=== PATIENT | female | born 1960 | race Two or more races ===

== ENCOUNTER 2018-04-30 17:34 | Inpatient (IN) | payer OTHER ==
[~2018-04-30] VITALS: Ht 166.4 cm; Wt 96.2 kg
--- NOTE | 2018-04-30 17:34 | NUR ---
Admitted a 57 years old female patient from [facility] via gurney with 2 EMT staff from [facility]. Pt. is under the care of Dr. Salgado and Dr. Grigsby who came with the following dx: s/p arthrotomy of lt. knee with a medial unicompartmental arthroplasty, partial lateral meniscectomy, GERD, partial thyroidectomy, carpal tunnel, and decrease mobility with hypercoagulable state. Patient has allergies to PCN. Patient is full code. Patient is A/OX4 verbally responsive and able to make her needs known. No SOB or acute distress. Denies pain during assessment. All pt. needs attended and met promptly. Lungs sounds clear to auscultation. MRSA swab completed per unit protocol. Offered pt. PNA and flu vaccine but refused due to fear of side effect. Noted with lt. knee surgical incision with babs covered in taylor wrap. No other skin condition noted. Pt. is continent to both B&B. Per pt. last BM was 04/27/18. Pt. on a regular diet, tolerated dinner well. Pt. oriented to unit. Dr. Salgado and Dr. Grigsby made aware of pt. admission. Kept pt. clean and dry. Safety measures in place. Call light and all frequently used items within pt. reach. Emphasize use of call light system, pt. verbalized clear understanding. Will endorse to oncoming shift accordingly.
[2018-04-30] MEDS ORDERED: ASPI-869 PO (17:47)
[2018-04-30] MEDS ORDERED: DOCU100C36 PO (17:48)
[2018-04-30] MEDS ORDERED: OXYC15TA2 PO (17:50)
[2018-04-30] MEDS ORDERED: BIOF1TAB PO (17:52)
[2018-04-30] MEDS ORDERED: CHOL10002 PO (17:52)
[2018-04-30] MEDS ORDERED: FAMO-132 PO (17:55)
[2018-04-30] MEDS ORDERED: MAG355OR18 PO (17:55)
[2018-04-30 18:00] VITALS: BP 127/65
--- NOTE | 2018-04-30 19:00 | NUR ---
Seen patient ambulating in the hallways with walker with slow and steady gait. Left knee with Liu wrap, dry and intact. Presented a tolerable pain during ambulation but refused any pain medications offered at this time. Patient very talkative and informative about her physical and medical condition. Anticipated needs.
[2018-04-30 20:00] VITALS: BP 110/50
--- NOTE | 2018-04-30 23:05 | NUR ---
Patient refused to have incision sites pictured at this time. Will try again some other times when she has no pain.
[2018-04-30] MEDS: OXYCODONE HCL 5 MG TABLET PO PRN (23:16)
--- NOTE | 2018-04-30 23:19 | NUR ---
Patient ambulated to the bathroom then complaining of severe excruciating left knee pain. Medicated with Oxy IR 15 mg as ordered and needed. Will monitor.
[2018-05-01] MEDS: OXYCODONE HCL 5 MG TABLET PO PRN ×4 (05:31→19:51)
--- NOTE | 2018-05-01 05:31 | NUR ---
Patient all of a sudden screaming and sobbing for pain after ambulating to the bathroom. Instructed patient to ask for pain medication before pain reached its peak so it would be easier to relieve the pain. Patient verbalized understanding. Medicated for pain as needed and ordered. Will continue to monitor.
--- NOTE | 2018-05-01 06:34 | NUR ---
Applied cold pack on affected area. Will monitor.
--- NOTE | 2018-05-01 06:37 | NUR ---
Once again tried to convinced patient to have a picture on her incisions but she then again refused. She claimed this can be done later during the day. Will endorse to oncoming shift.
[2018-05-01 07:09] VITALS: BP 126/65
--- NOTE | 2018-05-01 07:20 | NUR ---
Shift End Report: VS stable. Medicated twice for complaint of pain on left knee with moderate effect. Patient tends to scream and cry when she's in pain. Been instructed to call the nurse when she has pain instead of screaming and crying. Call light within easy reach. Very needy and demanding. All needs attended and met. Ice pack still in used on left knee to relieve pain to affected area. No fall/injury. No significant event reported all night. Continue care as planned
[2018-05-01 08:29] VITALS: BP 122/62
[2018-05-01] MEDS: DOCUSATE SODIUM 100 MG CAPSULE PO SCH ×2 (08:40→17:52)
[2018-05-01] MEDS: ASPIRIN EC 325 MG TABLET.DR PO SCH ×2 (08:41→17:52)
[2018-05-01] MEDS: CHOLECALCIFEROL 1,000 UNIT TABLET PO SCH (08:41)
[2018-05-01] MEDS ORDERED: [UNRECOGNIZED DRUG - OTHER] PO SCH (09:00)
[2018-05-01] MEDS: MIRALAX 17 GM POWD.PACK PO PRN (09:54)
[2018-05-01] MEDS: FAMOTIDINE 20 MG TABLET PO PRN (11:47)
--- NOTE | 2018-05-01 16:11 | NUR ---
INTERDISCIPLINARY TEAM CONFERENCE
[2018-05-01 16:25] VITALS: BP 104/68
[2018-05-01 20:12] VITALS: BP 126/57
--- NOTE | 2018-05-01 21:10 | NUR ---
Received pt in bed resting. AAO x4. No acute distress noted. Pt started to scream and cry due to complaint of 7/10 pain on the left knee. Pt noted to be shaking her legs vigorously making the pain worst. Pt instructed to avoid that for the meantime as it intensifies the pain even more. PRN Oxyir given as ordered. After 15 mins, pt asked if she could get a shot for pain instead. Pt encouraged to wait for the pain med to work. Reassessed after another 15 mins, pt stated that pain is subsiding already. Safety measures maintained. Call light and personal belongings within reach. Will continue to monitor.
[2018-05-01] MEDS ORDERED: MORPHINE SULFATE SR 30 MG TABLET.SA PO SCH (22:00)
[2018-05-01] MEDS ORDERED: MORPHINE SULFATE SR 15 MG TABLET.SA PO ONE ×2 (22:31→22:45)
[2018-05-01] MEDS ORDERED: MORPHINE SULFATE SR 15 MG TABLET.SA PO SCH (22:36)
[2018-05-02] MEDS: OXYCODONE HCL 5 MG TABLET PO PRN ×5 (03:41→23:08)
[2018-05-02 08:01] VITALS: BP 144/66
[2018-05-02] MEDS: MORPHINE SULFATE SR 15 MG TABLET.SA PO SCH ×2 (08:58→20:46)
[2018-05-02] MEDS: ASPIRIN EC 325 MG TABLET.DR PO SCH ×2 (09:00→17:21)
--- NOTE | 2018-05-02 09:00 | NUR ---
Received patient, awake, alert x4. With pain over left knee rated as 7/10, refused Ms Contin and said it did not work. Prefers to take Oxyir. Discussed risks and benefits but patient said she would still prefer Oxyir. Not in any form of distress. With intact, clean and dry surgical dressing over left knee, wrapped with taylor bandage
[2018-05-02] MEDS: CHOLECALCIFEROL 1,000 UNIT TABLET PO SCH (09:01)
[2018-05-02] MEDS: MIRALAX 17 GM POWD.PACK PO PRN (09:01)
[2018-05-02] MEDS: DOCUSATE SODIUM 100 MG CAPSULE PO SCH ×2 (09:01→17:21)
[2018-05-02] MEDS: MAG HYDROX/AL HYDROX/SIMETH 30 ML LIQUID UDC PO PRN (12:03)
[2018-05-02 13:57] LABS: BASOPHILS # (AUTO) 0.1 K/uL (0.0-8.0); BASOPHILS % (AUTO) 0.5 % (0.0-2.0); EOSINOPHILS # (AUTO) 0.4 K/uL (0.0-0.7); EOSINOPHILS % (AUTO) 4.6 % (0.0-7.0); HEMATOCRIT 39.6 % (31.2-41.9); HEMOGLOBIN 12.9 g/dL (10.9-14.3); LYMPHOCYTES # (AUTO) 1.6 K/uL (20.0-40.0); LYMPHOCYTES % (AUTO) 16.4 % (20.5-51.5); MEAN CORPUSCULAR HEMOGLOBIN 25.9 uug (24.7-32.8); MEAN CORPUSCULAR HGB CONC 33 g/dL (32.3-35.6); MEAN CORPUSCULAR VOLUME 79.6 fL (75.5-95.3); MONOCYTES # (AUTO) 0.7 K/uL (2.0-10.0); MONOCYTES % (AUTO) 6.8 % (0.0-11.0); NEUTROPHILS # (AUTO) 6.9 K/uL (1.8-8.9); NEUTROPHILS % (AUTO) 71.7 % (38.5-71.5); PLATELET COUNT (AUTO) 319 K/uL (179-408); RED BLOOD CELL COUNT(AUTO) 4.98 MIL/uL (3.63-4.92); WHITE BLOOD COUNT (AUTO) 9.6 K/uL (3.8-11.8)
[2018-05-02 14:06] LABS: BILIRUBIN,TOTAL 0.3 mg/dL (0.2-1.0); CREATININE 0.9 mg/dL (0.6-1.3); MAGNESIUM 2.2 mg/dL (1.8-2.4); POTASSIUM 3.8 mmol/L (3.5-5.1); TOTAL PROTEIN, SERUM 6.7 g/dL (6.4-8.2)
[2018-05-02] MEDS: FAMOTIDINE 20 MG TABLET PO PRN (14:33)
--- NOTE | 2018-05-02 15:21 | NUR ---
Up with physical therapy tolerating well. Able to ambulate. Not in any form of distress. Tolerable pain levels. Said she still has stomach upset, Pepcid and Maalox PRN given earlier.
[2018-05-02 15:54] VITALS: BP 124/61
[2018-05-02] MEDS: SUCRALFATE 1 G TABLET PO SCH ×2 (17:21→20:46)
--- NOTE | 2018-05-02 19:00 | NUR ---
Awake, alert, sitting on the bed, denies pain/discomforts at this time. Left knee dressing dry and intact with cold compress on. Safety measures and fall precaution maintained. Continue care as planned.
[2018-05-02 19:53] VITALS: BP 137/63
--- NOTE | 2018-05-02 21:37 | NUR ---
Patient reported that taking MS contin made her having some hallucinations, weird feelings and more risk for fall. Instructed patient not to give it to her anymore and we'll let the PMD knows. Will endorse to Am nurse.
[2018-05-03] MEDS: ACETAMINOPHEN 325 MG TABLET PO PRN ×4 (01:02→20:13)
[2018-05-03] MEDS: SUCRALFATE 1 G TABLET PO SCH ×4 (06:39→20:14)
--- NOTE | 2018-05-03 06:48 | NUR ---
Shift End Report: Slept well with Tylenol. Pain mostly well controlled with the Tylenol in between. No more hallucination and feeling of falling presented. All needs attended and met. Continue current rehab plan of care.
[2018-05-03 08:00] VITALS: BP 119/65
[2018-05-03] MEDS: MAG HYDROX/AL HYDROX/SIMETH 30 ML LIQUID UDC PO PRN (08:27)
[2018-05-03] MEDS: DOCUSATE SODIUM 100 MG CAPSULE PO SCH ×2 (08:27→16:13)
[2018-05-03] MEDS: CHOLECALCIFEROL 1,000 UNIT TABLET PO SCH (08:27)
[2018-05-03] MEDS: ASPIRIN EC 325 MG TABLET.DR PO SCH ×2 (08:27→16:13)
[2018-05-03] MEDS: LIPO FLAVONOID PLUS PO SCH (08:28)
[2018-05-03] MEDS: MORPHINE SULFATE SR 15 MG TABLET.SA PO SCH ×2 (09:00→20:14)
[2018-05-03] MEDS: OXYCODONE HCL 5 MG TABLET PO PRN ×3 (09:57→21:56)
--- NOTE | 2018-05-03 15:58 | NUR ---
INDIVIDUALIZED OVERALL PLAN OF CARE
[2018-05-03] MEDS: FAMOTIDINE 20 MG TABLET PO PRN (16:14)
[2018-05-03] MEDS: MIRALAX 17 GM POWD.PACK PO PRN (16:14)
[2018-05-03 16:23] VITALS: BP 121/56
--- NOTE | 2018-05-03 19:33 | NUR ---
Pt assessed, NAD or SOB noted throughout the shift. Pt reports pain management effective in reducing 6/10 pain with PRN Oxycodone intermittently with Tylenol, per MD orders. Pt refuses morphine due to hallucinating side effects from previous administration. Pt cooperative with all therapies as offered, including complete duration of CPM. Pt compliant with all routine medications. Constipation and GERD symptoms reported, PRN medications administered respectively, as ordered. All safety and comfort measures implemented. Bed in locked and lowest position with side rails up x2. Call light placed within reach. Will continue to monitor and endorse to oncoming third shift lieutenant nurse.
[2018-05-03 20:13] VITALS: BP 139/57
--- NOTE | 2018-05-03 21:05 | NUR ---
Received pt resting in bed. AAO x4. No acute distress noted. C/o 5/10 pain on the left knee. MS Contin refused, pt stated that it made her hallucinate. Tylenol was given for pain as it works better as per pt. VSS. Ice pack provided. Safety measures maintained. Call light and personal belongings within reach. Will continue to monitor.
[2018-05-03] MEDS ORDERED: OXYCODONE HCL 20 MG TAB.SR.12H PO SCH (23:00)
[2018-05-04] MEDS: OXYCODONE HCL 5 MG TABLET PO PRN ×3 (01:57→19:26)
[2018-05-04 06:03] VITALS: BP 114/63
[2018-05-04] MEDS: SUCRALFATE 1 G TABLET PO SCH ×4 (06:39→20:31)
[2018-05-04 08:00] VITALS: BP 133/65
[2018-05-04] MEDS: DOCUSATE SODIUM 100 MG CAPSULE PO SCH ×2 (08:41→16:41)
[2018-05-04] MEDS: ASPIRIN EC 325 MG TABLET.DR PO SCH ×2 (08:41→16:41)
[2018-05-04] MEDS: CHOLECALCIFEROL 1,000 UNIT TABLET PO SCH (08:42)
[2018-05-04] MEDS: LIPO FLAVONOID PLUS PO SCH (08:42)
[2018-05-04] MEDS: MIRALAX 17 GM POWD.PACK PO PRN (08:43)
[2018-05-04] MEDS: MORPHINE SULFATE SR 15 MG TABLET.SA PO SCH (08:43)
--- NOTE | 2018-05-04 09:15 | NUR ---
Received pt. on kyrie, comfortable in no distress. A/OX4 and able to make her needs known. Denies CP or SOB, on RA tolerating well with SAT of 100. All due medications administered as ordered and tolerated well. Refused MS contin this AM, pt. stated "I'm having auditory hallucination from it." Pt. hyperverbal and requires redirection. Lt. knee covered with dressing C/D/I. C/O bilateral forearm redness/rash, will touchbase with MD. All pt. needs attended and met promptly. Safety measures in place. Call light and all frequently used items within pt. reach. Addendum: 05/04/18 at 1120 by MAYRA WASSERMAN RN *Received pt. on bed
--- NOTE | 2018-05-04 10:33 | NUR ---
Obtained order from Dr. Salgado to d/c MS contin 03/21 non-usage (pt. refused). Orders noted and carried out. Pt. made aware of changes and thankful.
--- NOTE | 2018-05-04 11:20 | NUR ---
Received order from Dr. Grigsby for Hydrocortisone 1% crm q12h x 10 days for forearm redness/rash/itching. Orders noted and carried out. Pt. made aware.
[2018-05-04] MEDS: HYDROCORTISONE 1% CREAM 30 GM TUBE TP SCH ×2 (12:30→20:32)
[2018-05-04] MEDS: FAMOTIDINE 20 MG TABLET PO PRN (13:49)
[2018-05-04 16:21] VITALS: BP 141/68
--- NOTE | 2018-05-04 17:02 | NUR ---
Social service note: transit survey worker provided patient with a list of caregiving agencies in the [facility]. The following agencies were provided to patient: [facility] [ and [employer]. [ ]. Patient accepting of resources.
--- NOTE | 2018-05-04 18:20 | NUR ---
End of shift note: All due medications administered as ordered and tolerated well. No sign of acute distress or SOB was noted. Kept pt clean and dry throughout this shift. X1 BM today. On CPM @ 70 degrees and tolerating well. Safety measures maintained. All needs attended and met promptly. Bed in low position, brake and alarm on, side rails up x2 as an enabler. Call light and all frequently used items within pt. reach. Will endorse to next shift accordingly.
[2018-05-04 20:04] VITALS: BP 135/64
[2018-05-05] MEDS: ACETAMINOPHEN 325 MG TABLET PO PRN ×3 (01:56→22:50)
[2018-05-05 05:22] VITALS: BP 148/71
[2018-05-05] MEDS: SUCRALFATE 1 G TABLET PO SCH ×4 (06:30→20:38)
[2018-05-05 09:00] VITALS: BP 147/72
[2018-05-05] MEDS: CHOLECALCIFEROL 1,000 UNIT TABLET PO SCH (09:23)
[2018-05-05] MEDS: OXYCODONE HCL 5 MG TABLET PO PRN ×2 (09:23→18:11)
[2018-05-05] MEDS: DOCUSATE SODIUM 100 MG CAPSULE PO SCH ×2 (09:23→17:14)
[2018-05-05] MEDS: ASPIRIN EC 325 MG TABLET.DR PO SCH ×2 (09:24→17:14)
[2018-05-05] MEDS: HYDROCORTISONE 1% CREAM 30 GM TUBE TP SCH ×2 (09:24→20:38)
[2018-05-05] MEDS: LIPO FLAVONOID PLUS PO SCH (09:24)
--- NOTE | 2018-05-05 09:34 | NUR ---
Received patient, awake, alert x4. Not in any form of distress. With pain over left leg rated as 7/10 with activity. With intact and dry surgical dressing over left knee.
--- NOTE | 2018-05-05 11:00 | NUR ---
Up with physical therapy, tolerating well. Pain medication given prior to therapy. Was able to ambulate with tolerable pain levels.
--- NOTE | 2018-05-05 15:56 | NUR ---
Showered independently, surgical dressing changed per soiling. Wound with babs, no discharges, no s/s of infection noted.
[2018-05-05 17:26] VITALS: BP 138/67
--- NOTE | 2018-05-05 19:37 | NUR ---
SBAR RECEIVED FROM DAY SHIFT NURSE. PATIENT ALERT AND ORIENTED X 4. NO C/O OF PAIN, SOB OR DISTRESS UPON ASSESSMENT. NO C/O DISTRESS OR SOB UPON ASSESSMENT. WILL CONTINUE TO MONITOR.
[2018-05-05 20:00] VITALS: BP 131/57
--- NOTE | 2018-05-05 20:45 | NUR ---
EVENING MEDICATIONS GIVEN, AND WEEKLY PHOTO OF LEFT KNEE HORACIO TAKEN. NO DISTRESS DURING DRESSING CHANGE. PATIENT TOLERATED MEDICATIONS WELL. WILL CONTINUE TO MONITOR.
--- NOTE | 2018-05-06 00:40 | NUR ---
PATIENT UP TO BATHROOM WITH STAND BY ASSISTANCE.
[2018-05-06] MEDS: OXYCODONE HCL 5 MG TABLET PO PRN ×3 (03:22→19:41)
--- NOTE | 2018-05-06 03:25 | NUR ---
PATIENT C/O PAIN IN LEFT KNEE. ICE PACK AND PAIN MEDICATION GIVEN TO HELP WITH PAIN MEDICATION. WILL CONTINUE TO MONITOR.
[2018-05-06 04:30] VITALS: BP 105/48
[2018-05-06] MEDS: SUCRALFATE 1 G TABLET PO SCH ×4 (06:30→20:50)
--- NOTE | 2018-05-06 06:58 | NUR ---
PATIENT SLEPT ON AND OFF DURING AUDIT INTERN. ALL DUE MEDICATIONS GIVEN-TOLERATED WELL. CALL LIGHT UTILIZED FOR BATHROOM NEEDS. SIDE RAILS UP BILATERALLY FOR SAFETY. CALL LIGHT AND FREQUENTLY USED ITEMS WITHIN REACH. WILL ENDORSE TO ONCOMING SHIFT ACCORDINGLY.
[2018-05-06 08:30] VITALS: BP 117/58
[2018-05-06] MEDS: ASPIRIN EC 325 MG TABLET.DR PO SCH ×2 (08:31→16:25)
[2018-05-06] MEDS: CHOLECALCIFEROL 1,000 UNIT TABLET PO SCH (08:31)
[2018-05-06] MEDS: DOCUSATE SODIUM 100 MG CAPSULE PO SCH ×2 (08:31→16:24)
[2018-05-06] MEDS: HYDROCORTISONE 1% CREAM 30 GM TUBE TP SCH ×2 (08:32→20:51)
[2018-05-06] MEDS: LIPO FLAVONOID PLUS PO SCH (08:32)
[2018-05-06 16:27] VITALS: BP 141/67
[2018-05-06 19:30] VITALS: BP 146/71
[2018-05-06] MEDS: ACETAMINOPHEN 325 MG TABLET PO PRN (20:50)
--- NOTE | 2018-05-06 23:07 | NUR ---
alert and oriented. complained of 7/10 pain on left knee at beginning of shift. left knee dressing clean dry and intact. medicated with oxycontin as ordered. tolerated well. needs attended. ambulates to the BR with cane. voiding freely. patient still have some pain at left knee. tylenol given. will monitor patient. kept comfortable. no acute distress noted. VSS. fall precautions maintained. siderails up for safety.
[2018-05-07 05:55] VITALS: BP 140/69
--- NOTE | 2018-05-07 06:23 | NUR ---
slept well most of the shift. no acute distress noted. VSS. ambulates to the BR. voiding without difficulty. needs attended. fall precautions maintained. siderails up for safety.
[2018-05-07] MEDS: SUCRALFATE 1 G TABLET PO SCH ×4 (07:49→20:37)
[2018-05-07] MEDS: CHOLECALCIFEROL 1,000 UNIT TABLET PO SCH (08:56)
[2018-05-07] MEDS: DOCUSATE SODIUM 100 MG CAPSULE PO SCH ×2 (08:56→17:03)
[2018-05-07] MEDS: ASPIRIN EC 325 MG TABLET.DR PO SCH ×2 (08:57→17:03)
[2018-05-07] MEDS: LIPO FLAVONOID PLUS PO SCH (08:57)
[2018-05-07] MEDS: OXYCODONE HCL 5 MG TABLET PO PRN (08:58)
[2018-05-07] MEDS: HYDROCORTISONE 1% CREAM 30 GM TUBE TP SCH ×2 (09:00→20:37)
[2018-05-07 17:00] VITALS: BP 141/66
[2018-05-07] MEDS: ACETAMINOPHEN 325 MG TABLET PO PRN ×2 (17:04→23:05)
[2018-05-07] MEDS: FAMOTIDINE 20 MG TABLET PO PRN (17:07)
[2018-05-07 19:49] VITALS: BP 131/68
--- NOTE | 2018-05-07 21:16 | NUR ---
Received pt resting in bed. AAO x4. No acute distress noted. C/o 5/10 pain on the left knee, refused pain med for now. Risks and benefits explained. Due med given as ordered. VSS. Safety measures maintained. Call light and personal belongings within reach. Will continue to monitor.
[2018-05-08] MEDS: OXYCODONE HCL 5 MG TABLET PO PRN ×3 (00:08→20:58)
[2018-05-08 06:14] VITALS: BP 141/62
--- NOTE | 2018-05-08 06:39 | NUR ---
Upon administering med, pt wanted to go back to sleep and requested to take Sucralfate when she wakes up instead. Will endorse to day shift RN.
[2018-05-08 09:00] VITALS: BP 143/60
--- NOTE | 2018-05-08 09:00 | NUR ---
Received patient, awake, alert x4. Not in any form of distress. With tolerable pain over left knee. Surgical dressing intact, no bleeding or discharges noted.
[2018-05-08] MEDS: SUCRALFATE 1 G TABLET PO SCH ×3 (09:03→17:22)
[2018-05-08] MEDS: CHOLECALCIFEROL 1,000 UNIT TABLET PO SCH (09:45)
[2018-05-08] MEDS: HYDROCORTISONE 1% CREAM 30 GM TUBE TP SCH ×2 (09:46→20:58)
[2018-05-08] MEDS: LIPO FLAVONOID PLUS PO SCH (09:46)
[2018-05-08] MEDS: DOCUSATE SODIUM 100 MG CAPSULE PO SCH ×2 (09:46→17:51)
[2018-05-08] MEDS: ASPIRIN EC 325 MG TABLET.DR PO SCH ×2 (09:51→17:51)
--- NOTE | 2018-05-08 10:30 | NUR ---
Up with physical therapy, tolerating well. Was able to ambulate with OT, no pain noted. PRN pain medications given prior to therapy.
--- NOTE | 2018-05-08 13:47 | NUR ---
INTERDISCIPLINARY TEAM CONFERENCE
[2018-05-08 16:00] VITALS: BP 150/74
[2018-05-08] MEDS: ACETAMINOPHEN 325 MG TABLET PO PRN (17:50)
--- NOTE | 2018-05-08 19:25 | NUR ---
REPORT RECEIVED FROM DAY SHIFT NURSE. PATIENT ALERT AND ORIENTED X 4. C/O OF PAIN UPON ASSESSMENT. WILL MEDICATE. NO C/O SOB OR DISTRESS UPON ASSESSMENT. NO C/O DISTRESS OR SOB UPON ASSESSMENT. CALL LIGHT AND FREQUENTLY USED ITEMS WITHIN REACH. WILL CONTINUE TO MONITOR.
[2018-05-08 20:45] VITALS: BP 134/64
--- NOTE | 2018-05-09 06:41 | NUR ---
PATIENT SLEPT WELL THROUGHOUT THE NIGHT. ALL DUE MEDICATIONS GIVEN-TOLERATED WELL. CALL LIGHT UTILIZED FOR BATHROOM VISITS. SIDE RAILS UP BILATERALLY FOR SAFETY. CALL LIGHT AND FREQUENTLY USED ITEMS WITHIN REACH. WILL ENDORSE TO ONCOMING SHIFT ACCORDINGLY.
[2018-05-09 08:00] VITALS: BP 144/72
[2018-05-09] MEDS: LIPO FLAVONOID PLUS PO SCH (08:29)
[2018-05-09] MEDS: DOCUSATE SODIUM 100 MG CAPSULE PO SCH ×2 (08:30→17:34)
[2018-05-09] MEDS: CHOLECALCIFEROL 1,000 UNIT TABLET PO SCH (08:30)
[2018-05-09] MEDS: ASPIRIN EC 325 MG TABLET.DR PO SCH ×2 (08:31→17:36)
[2018-05-09] MEDS: HYDROCORTISONE 1% CREAM 30 GM TUBE TP SCH ×2 (08:32→20:47)
[2018-05-09] MEDS: OXYCODONE HCL 5 MG TABLET PO PRN (09:01)
[2018-05-09 16:00] VITALS: BP 128/59
--- NOTE | 2018-05-09 19:25 | NUR ---
SBAR RECEIVED FROM DAY SHIFT NURSE. PATIENT ALERT AND ORIENTED X 4. C/O OF PAIN UPON ASSESSMENT. ICE PACKS APPLIED TO HELP RELIEVED PAIN. NO C/O SOB OR DISTRESS UPON ASSESSMENT. PATIENT REFUSING EVENING VITAL SIGNS. EXPLAINED THE RISKS OF REFUSING. STILL REFUSED. CALL LIGHT AND FREQUENTLY USED ITEMS WITHIN REACH. WILL CONTINUE TO MONITOR.
[2018-05-09] MEDS: ACETAMINOPHEN 325 MG TABLET PO PRN (20:47)
[2018-05-10] MEDS: ACETAMINOPHEN 325 MG TABLET PO PRN ×2 (04:59→18:39)
[2018-05-10 05:10] VITALS: BP 128/64
--- NOTE | 2018-05-10 06:40 | NUR ---
SLEPT WELL THROUGHOUT THE NIGHT. ALL DUE MEDICATIONS GIVEN-TOLERATED WELL. TYLENOL GIVEN FOR PAIN X2 DURING SHIFT. PATIENT OUT ON PASS THIS MORNING WITH BROTHER. CALL LIGHT AND FREQUENTLY USED ITEMS WITH IN REACH. WILL ENDORSE TO ONCOMING SHIFT ACCORDINGLY.
[2018-05-10 08:00] VITALS: BP 137/69
[2018-05-10] MEDS: FAMOTIDINE 20 MG TABLET PO PRN (08:01)
[2018-05-10] MEDS: OXYCODONE HCL 5 MG TABLET PO PRN ×2 (08:02→21:16)
[2018-05-10] MEDS: CHOLECALCIFEROL 1,000 UNIT TABLET PO SCH (08:02)
[2018-05-10] MEDS: DOCUSATE SODIUM 100 MG CAPSULE PO SCH ×2 (08:02→16:27)
[2018-05-10] MEDS: ASPIRIN EC 325 MG TABLET.DR PO SCH ×2 (08:03→16:27)
[2018-05-10] MEDS: LIPO FLAVONOID PLUS PO SCH (08:03)
[2018-05-10] MEDS: HYDROCORTISONE 1% CREAM 30 GM TUBE TP SCH ×2 (08:05→21:15)
--- NOTE | 2018-05-10 11:40 | NUR ---
OUT ON PASS WITH BROTHER AND FRIEND TO [facility]. RELEASE FORM SIGNED. PLANNED TO BE OUT FOR 4 HOURS
[2018-05-10 16:12] VITALS: BP 139/63
[2018-05-10] MEDS: MIRALAX 17 GM POWD.PACK PO PRN (16:31)
[2018-05-10 20:37] VITALS: BP 132/63
--- NOTE | 2018-05-10 21:42 | NUR ---
ALERT AND ORIENTED X 4. C/O OF PAIN UPON ASSESSMENT. WILL MEDICATE. NO C/O SOB OR DISTRESS UPON ASSESSMENT. CALL LIGHT AND FREQUENTLY USED ITEMS WITHIN REACH. WILL CONTINUE TO MONITOR.
--- NOTE | 2018-05-11 06:41 | NUR ---
PATIENT SLEPT WELL DURING THE NIGHT. ALL DUE MEDICATIONS GIVEN-TOLERATED WELL. PATIENT OUT FOR DOCTOR APPOINTMENT TO REMOVE HORACIO FROM KNEE SURGERY. CD NEEDED FOR APPOINTMENT. CALL LIGHT AND FREQUENTLY USED ITEMS WITH IN REACH. WILL ENDORSE TO ONCOMING SHIFT ACCORDINGLY.
[2018-05-11 08:05] VITALS: BP 125/53
[2018-05-11] MEDS: CHOLECALCIFEROL 1,000 UNIT TABLET PO SCH (09:22)
[2018-05-11] MEDS: DOCUSATE SODIUM 100 MG CAPSULE PO SCH ×2 (09:22→17:26)
[2018-05-11] MEDS: HYDROCORTISONE 1% CREAM 30 GM TUBE TP SCH ×2 (09:23→20:01)
[2018-05-11] MEDS: ASPIRIN EC 325 MG TABLET.DR PO SCH ×2 (09:23→17:26)
[2018-05-11] MEDS: FAMOTIDINE 20 MG TABLET PO PRN (09:23)
[2018-05-11] MEDS: LIPO FLAVONOID PLUS PO SCH (09:23)
[2018-05-11] MEDS: OXYCODONE HCL 5 MG TABLET PO PRN (11:43)
--- NOTE | 2018-05-11 12:00 | NUR ---
Patient went out on pass for appointment with Dr. Ayers, picked up by G[facility] via [facility]. Patient remains alert, not in any form of acute distress.
--- NOTE | 2018-05-11 14:30 | NUR ---
Patient back from appointment. She denies any pain or discomfort at this time. Doland from surgical incision removed from appointment with steri strips on, open to air.
[2018-05-11 16:09] VITALS: BP 140/65
--- NOTE | 2018-05-11 20:30 | NUR ---
Received pt resting in bed. AAO x4. No acute distress noted. Denies any pain or discomfort at this time. Due med given as ordered. Safety measures maintained. Call light and personal belongings within reach. Will continue to monitor.
[2018-05-11 20:37] VITALS: BP 139/61
[2018-05-11] MEDS: ACETAMINOPHEN 325 MG TABLET PO PRN (21:22)
[2018-05-12] MEDS: OXYCODONE HCL 5 MG TABLET PO PRN ×3 (00:59→20:35)
[2018-05-12 05:03] VITALS: BP 115/61
[2018-05-12 08:00] VITALS: BP 138/69
--- NOTE | 2018-05-12 08:08 | NUR ---
Patient noted sitting up in bed, complaints of pain in left knee, will give PRN pain medication, no signs of distress noted, call light in reach, no changes in mental status, bed locked and in lowest position,
[2018-05-12] MEDS: DOCUSATE SODIUM 100 MG CAPSULE PO SCH ×2 (08:56→16:55)
[2018-05-12] MEDS: ASPIRIN EC 325 MG TABLET.DR PO SCH ×2 (08:57→16:55)
[2018-05-12] MEDS: LIPO FLAVONOID PLUS PO SCH (08:57)
[2018-05-12] MEDS: CHOLECALCIFEROL 1,000 UNIT TABLET PO SCH (08:57)
[2018-05-12] MEDS: HYDROCORTISONE 1% CREAM 30 GM TUBE TP SCH ×2 (08:58→17:00)
[2018-05-12] MEDS: FAMOTIDINE 20 MG TABLET PO PRN (16:55)
--- NOTE | 2018-05-12 19:24 | NUR ---
Patient states she thinks she "tore something" in her knee, MD Pereira made aware
[2018-05-12 20:55] VITALS: BP 139/68
--- NOTE | 2018-05-12 21:38 | NUR ---
Received pt resting in bed. AAO x4. No acute distress noted. C/o 6/10 pain on the left knee. PRN pain med given as ordered. Pt stated she might have tore something on her left knee due to using the CPM machine at 110 degree and pain is getting worse. Dr. Pereira seen pt and was at bedside. Picture taken, steri strip in placed, pt stated not to remove it as per ortho MD order during her appointment. Safety measures maintained. Call light and personal belongings within reach. Will continue to monitor.
[2018-05-13 07:27] LABS: BASOPHILS # (AUTO) 0.1 K/uL (0.0-8.0); BASOPHILS % (AUTO) 0.7 % (0.0-2.0); EOSINOPHILS # (AUTO) 0.5 K/uL (0.0-0.7); EOSINOPHILS % (AUTO) 7.1 % (0.0-7.0); HEMATOCRIT 39.7 % (31.2-41.9); HEMOGLOBIN 12.8 g/dL (10.9-14.3); LYMPHOCYTES # (AUTO) 2.1 K/uL (20.0-40.0); LYMPHOCYTES % (AUTO) 29.1 % (20.5-51.5); MEAN CORPUSCULAR HEMOGLOBIN 26.1 uug (24.7-32.8); MEAN CORPUSCULAR HGB CONC 32 g/dL (32.3-35.6); MEAN CORPUSCULAR VOLUME 80.6 fL (75.5-95.3); MONOCYTES # (AUTO) 0.4 K/uL (2.0-10.0); MONOCYTES % (AUTO) 4.8 % (0.0-11.0); NEUTROPHILS # (AUTO) 4.3 K/uL (1.8-8.9); NEUTROPHILS % (AUTO) 58.3 % (38.5-71.5); PLATELET COUNT (AUTO) 340 K/uL (179-408); RED BLOOD CELL COUNT(AUTO) 4.92 MIL/uL (3.63-4.92); WHITE BLOOD COUNT (AUTO) 7.4 K/uL (3.8-11.8)
[2018-05-13 07:52] LABS: BILIRUBIN,TOTAL 0.3 mg/dL (0.2-1.0); CREATININE 0.9 mg/dL (0.6-1.3); MAGNESIUM 2.2 mg/dL (1.8-2.4); PHOSPHOROUS 4.7 mg/dL (2.5-4.9); POTASSIUM 4.4 mmol/L (3.5-5.1)
[2018-05-13 08:00] VITALS: BP 121/67
[2018-05-13] MEDS: FAMOTIDINE 20 MG TABLET PO PRN (09:07)
[2018-05-13] MEDS: DOCUSATE SODIUM 100 MG CAPSULE PO SCH ×2 (09:07→17:14)
[2018-05-13] MEDS: HYDROCORTISONE 1% CREAM 30 GM TUBE TP SCH ×2 (09:08→20:20)
[2018-05-13] MEDS: CHOLECALCIFEROL 1,000 UNIT TABLET PO SCH (09:08)
[2018-05-13] MEDS: OXYCODONE HCL 5 MG TABLET PO PRN ×2 (09:08→11:53)
[2018-05-13] MEDS: ASPIRIN EC 325 MG TABLET.DR PO SCH ×2 (09:09→17:14)
[2018-05-13] MEDS: LIPO FLAVONOID PLUS PO SCH (09:09)
--- NOTE | 2018-05-13 10:20 | NUR ---
Patient noted sitting up in bed, complaints of pain in left knee 05/27, declined PRN pain medication, no signs of distress noted, call light in reach, no changes in mental status, bed locked and in lowest position
[2018-05-13 16:00] VITALS: BP 110/56
--- NOTE | 2018-05-13 19:00 | NUR ---
Ambulating with cane in the hallway with steady gait. Denies any pain/discomforts at this. No SOB/SOBOE.
--- NOTE | 2018-05-13 19:35 | NUR ---
To CT of left LE via wheel chair as ordered.
--- NOTE | 2018-05-13 19:43 | NUR ---
Back from CT without any complaint. Place back to bed. Made comfortable.
[2018-05-13 20:15] VITALS: BP 106/55
[2018-05-13] MEDS: ACETAMINOPHEN 325 MG TABLET PO PRN (20:20)
[2018-05-13] MEDS ORDERED: OXYCODONE HCL 5 MG TABLET PO PRN (21:45)
[2018-05-13 22:00] VITALS: BP 106/55
[2018-05-14 06:00] VITALS: BP 133/54
[2018-05-14 07:15] VITALS: BP 131/63
--- NOTE | 2018-05-14 08:40 | NUR ---
Received patient, awake, alert x3-4. With pain over left knee rated as 6/10. PRN Tylenol given. Not in any form of distress. Morning care done. Surgical site, dry, clean and with no discharges noted. Steri-strips intact.
[2018-05-14] MEDS: DOCUSATE SODIUM 100 MG CAPSULE PO SCH (08:47)
[2018-05-14] MEDS: LIPO FLAVONOID PLUS PO SCH (08:48)
[2018-05-14] MEDS: CHOLECALCIFEROL 1,000 UNIT TABLET PO SCH (08:48)
[2018-05-14] MEDS: ASPIRIN EC 325 MG TABLET.DR PO SCH (08:48)
[2018-05-14] MEDS: HYDROCORTISONE 1% CREAM 30 GM TUBE TP SCH (08:48)
[2018-05-14] MEDS: ACETAMINOPHEN 325 MG TABLET PO PRN (08:51)
--- NOTE | 2018-05-14 11:30 | NUR ---
Discharge order obtained from Dr Salgado. relayed Ct scan and ultrasound result of left knee to Dr Ayers's office, talked with LINDSAY Bertrand of and said patient was clear to be discharged. Informed Dr Pereira and Dr Pereira completed discharge prescriptions. Informed patient to take medications as prescribed and to Follow up with Dr Ayers on 05/20/18 at 11:30 AM. Discussed and given education packet to patient. Patient stable, with tolerable pain over left knee. Not in any form of distress. Discharge to home accompanied by Timothy from [facility] via private transport.
== END 2018-05-14 11:30 | disposition home health service (06) | DRG 560 ==
PROVIDERS: ADMIT Physical Medicine & Rehabilitation Pain Medicine; ATTEND Physical Medicine & Rehabilitation Pain Medicine
DX: Z47.1 Aftercare following joint replacement surgery (principal); D68.59 Other primary thrombophilia; Z96.652 Presence of left artificial knee joint; E89.0 Postprocedural hypothyroidism; K21.9 Gastro-esophageal reflux disease without esophagitis; E66.9 Obesity, unspecified; Z68.34 Body mass index [BMI] 34.0-34.9, adult; M17.12 Unilateral primary osteoarthritis, left knee; E88.09 Other disorders of plasma-protein metabolism, not elsewhere classified; M19.90 Unspecified osteoarthritis, unspecified site; Z88.0 Allergy status to penicillin
CPT/HCPCS: 36415; 73560; 73700; 83735; 84100; 85025; 92523; 92526; 92610; 97110; 97112; 97116; 97165; 97530; 97535; A4663

== ENCOUNTER 2019-07-20 19:24 | Inpatient (IN) | payer OTHER ==
[~2019-07-20] VITALS: Ht 165.1 cm; Wt 90.3 kg
[~2019-07-20 19:24] MED LIST: ASPI-869 PO; BIOF1TAB PO; CHOL10002 PO; DOCU100C36 PO; FAMO-132 PO; MAG355OR18 PO; OXYC15TA2 PO
[2019-07-20] MEDS ORDERED: Z GUARD REMEDY PASTE 57 GM TUBE TOP PRN (19:45)
[2019-07-20] MEDS ORDERED: GABA100C PO (19:58)
[2019-07-20] MEDS ORDERED: OXYC-133 PO (19:58)
[2019-07-20 20:13] VITALS: BP 125/52
[2019-07-20] MEDS: GABAPENTIN 100 MG CAPSULE PO SCH (21:23)
[2019-07-20] MEDS: OXYCODONE/APAP 5-325 MG TABLET PO PRN (22:06)
--- NOTE | 2019-07-20 23:05 | NUR ---
New admission. Received pt resting in bed and talking on the phone. AAO x4. No acute distress noted. C/o 7/10 pain on the left knee. Pt is s/p left knee revision surgery with Dr. Ayers on 07/19/[address] [facility]. Pertinent assessment done. Dr. Pereira and Dr. Salgado notified of admission. Med recon done. Surgical site has original dressing. MRSA swab sent to the lab. Safety measures maintained. Call light and personal items within reach. Will continue to monitor.
[2019-07-21] MEDS: OXYCODONE/APAP 5-325 MG TABLET PO PRN ×4 (02:07→22:18)
[2019-07-21] MEDS: GABAPENTIN 100 MG CAPSULE PO SCH ×3 (06:16→21:26)
[2019-07-21 06:46] VITALS: BP 125/58
[2019-07-21 08:00] VITALS: BP 115/51
[2019-07-21] MEDS: MULTIVITAMINS,THERAPEUTIC TABLET PO SCH (08:39)
[2019-07-21] MEDS: DOCUSATE SODIUM 100 MG CAPSULE PO SCH ×2 (08:39→17:11)
[2019-07-21] MEDS: ASPIRIN EC 325 MG TABLET.DR PO SCH ×2 (08:39→17:11)
[2019-07-21] MEDS ORDERED: [UNRECOGNIZED DRUG - OTHER] PO SCH (09:00)
--- NOTE | 2019-07-21 11:00 | NUR ---
Patient is AAO X 4, verbally able to express needs. No acute distress. Vital signs taken and stable for patient. patient very compliant with care. patient is S/P Left knee revision surgery. Site with dressing and taylor rap as per report. NO order to remove rap yet. Pt. ambulatory with a walker and 1 person assist; BRP. Patient on PT/OT therapy. Percocet 5/325mg 2 tabs administered for pain level of 8/10, and effective. Patient is independent for most care. All other needs attended, safety measures in place, call light left within easy reach and will continue with care.
[2019-07-21 15:59] VITALS: BP 113/49
[2019-07-21 20:46] VITALS: BP 120/58
[2019-07-21] MEDS: ACETAMINOPHEN 325 MG TABLET PO PRN (23:26)
[2019-07-22 04:30] VITALS: BP 109/49
[2019-07-22] MEDS: GABAPENTIN 100 MG CAPSULE PO SCH ×3 (05:58→22:03)
[2019-07-22 06:04] LABS: BASOPHILS % (AUTO) 0.5 % (0.0-2.0); EOSINOPHILS # (AUTO) 0.4 K/uL (0.0-0.7); EOSINOPHILS % (AUTO) 6.3 % (0.0-7.0); HEMATOCRIT 31.1 % (31.2-41.9); HEMOGLOBIN 10.3 g/dL (10.9-14.3); LYMPHOCYTES # (AUTO) 1.8 K/uL (20.0-40.0); LYMPHOCYTES % (AUTO) 28.4 % (20.5-51.5); MEAN CORPUSCULAR HEMOGLOBIN 26.7 uug (24.7-32.8); MEAN CORPUSCULAR HGB CONC 33 g/dL (32.3-35.6); MEAN CORPUSCULAR VOLUME 80.4 fL (75.5-95.3); MONOCYTES # (AUTO) 0.6 K/uL (2.0-10.0); MONOCYTES % (AUTO) 9.2 % (0.0-11.0); NEUTROPHILS # (AUTO) 3.5 K/uL (1.8-8.9); NEUTROPHILS % (AUTO) 55.6 % (38.5-71.5); PLATELET COUNT (AUTO) 160 K/uL (179-408); RED BLOOD CELL COUNT(AUTO) 3.87 MIL/uL (3.63-4.92); WHITE BLOOD COUNT (AUTO) 6.2 K/uL (3.8-11.8)
--- NOTE | 2019-07-22 06:11 | NUR ---
Received patient in bed. AAO x4. No acute distress or SOB was noted. Complained of pain in the left knee, rated her pain 8/10 in numeric scale. PRN Percocet 5-325 mg administered and effective. On room air. Physical assessment done. safety measures maintain, fall prevention observed. Skin assessed. All due medication administered and well tolerated. Pain assesses and reassessed after pain medication. All needs attended promptly. Assisted her to the bathroom as needed. Bed in locked and low position, side rails up x2 for safety, bed alarm on. Call light and frequently using items within reach. Continue to monitor and will endorse to the day shift nurse.
[2019-07-22 06:19] LABS: THYROID STIMULATING HORMONE 1.867 mIU/mL (0.358-3.740)
[2019-07-22 06:35] LABS: BILIRUBIN,TOTAL 0.5 mg/dL (0.2-1.0); MAGNESIUM 2.1 mg/dL (1.8-2.4); PHOSPHOROUS 3.1 mg/dL (2.5-4.9); POTASSIUM 4.3 mmol/L (3.5-5.1); TOTAL PROTEIN, SERUM 5.6 g/dL (6.4-8.2)
[2019-07-22 07:30] VITALS: BP 127/69
[2019-07-22] MEDS: DOCUSATE SODIUM 100 MG CAPSULE PO SCH ×2 (08:29→17:14)
[2019-07-22] MEDS: ASPIRIN EC 325 MG TABLET.DR PO SCH ×2 (08:29→17:14)
[2019-07-22] MEDS: OXYCODONE/APAP 5-325 MG TABLET PO PRN ×5 (08:29→22:43)
[2019-07-22] MEDS: MULTIVITAMINS,THERAPEUTIC TABLET PO SCH (08:29)
[2019-07-22] MEDS: MIRALAX 17 GM POWD.PACK PO PRN (12:23)
--- NOTE | 2019-07-22 12:43 | NUR ---
Patient continue on therapy for ADL activities and S/P knee sx. Patient continue pain management prior to therapy with good effect. Patient requesting for dressing suture change. Patient was advice that will call the MD for change of dressing. will continue monitor
[2019-07-22] MEDS: [UNRECOGNIZED DRUG - OTHER] PO SCH ×2 (13:00→14:42)
[2019-07-22] MEDS: VIT D3 2000 IU PO SCH (14:41)
[2019-07-22 15:47] VITALS: BP 104/63
--- NOTE | 2019-07-22 16:30 | NUR ---
Patient redness on left upper arm noted. took picture, for wound care consult. denies pain. Patient verbalize itchiness on site at times. will continue monitor
[2019-07-22] MEDS: MAG HYDROX/AL HYDROX/SIMETH 30 ML LIQUID UDC PO PRN (17:14)
--- NOTE | 2019-07-22 17:44 | NUR ---
Patient requested for change of dressing of original dressing. Advice the patient will inform the surgeon, MD Herrera. Cosmetic Maker tried to reach out thru voice message couple of times but no return call from the office. Patient verbalize that she spoke to Angeli, coordinator to change the dressing on friday or friday after 1 week of operation. will endorse and confirm with MD. Patient complaint of stomach upset. Mylanta given with good effect. Continue fall risk precaution maintained. will continue monitor
[2019-07-22 20:00] VITALS: BP 126/57
[2019-07-23 04:00] VITALS: BP 133/48
--- NOTE | 2019-07-23 04:29 | NUR ---
Received patient in bed watching TV. AAO x4. Makes needs known. No acute distress or SOB was noted. Vitals signs stable, on room air, no fever. Head to toe assessment completed. Noted pink discoloration on around surgical site, leg is warm to touch, will continue to monitor for other signs of infection, Ice applied. All due medication given. Complained of pain in the left knee, rated her pain 8/10 later in the night. PRN Percocet 5-325 mg administered and effective. Safety measures maintain, fall prevention observed. All needs attended promptly. Assisted her to the bathroom as needed. Bed in locked and low position, side rails up x2 for safety, bed alarm on. Call light and frequently using items within reach. Continue to monitor and will endorse to the day shift nurse.
[2019-07-23] MEDS: GABAPENTIN 100 MG CAPSULE PO SCH ×3 (06:18→20:56)
[2019-07-23] MEDS: OXYCODONE/APAP 5-325 MG TABLET PO PRN ×4 (06:25→23:52)
[2019-07-23] MEDS: MAGNESIUM HYDROXIDE 30 ML LIQUID UDC PO PRN (06:25)
--- NOTE | 2019-07-23 07:05 | NUR ---
Patient complaints of pain 10/27, administered percocet. Gave morning medication and administered milk of mag has not had a BM since 07/18. No changes noted. Will endorse report to next shift. Will continue to monitor.
[2019-07-23 08:00] VITALS: BP 109/50
[2019-07-23] MEDS: VIT D3 2000 IU PO SCH (09:16)
[2019-07-23] MEDS: DOCUSATE SODIUM 100 MG CAPSULE PO SCH ×2 (09:16→17:18)
[2019-07-23] MEDS: ASPIRIN EC 325 MG TABLET.DR PO SCH ×2 (09:16→17:18)
[2019-07-23] MEDS: [UNRECOGNIZED DRUG - OTHER] PO SCH (09:16)
[2019-07-23] MEDS: MULTIVITAMINS,THERAPEUTIC TABLET PO SCH (09:16)
[2019-07-23] MEDS: MAG HYDROX/AL HYDROX/SIMETH 30 ML LIQUID UDC PO PRN (09:22)
[2019-07-23] MEDS: MIRALAX 17 GM POWD.PACK PO PRN (09:22)
--- NOTE | 2019-07-23 11:39 | NUR ---
WOUND CARE CONSULT: PT PRESENTS WITH CIRCULAR RED AREA TO LEFT POSTERIOR ARM, UNKNOWN ETIOLOGY. DEFER TO MD FOR RED AREA. RN TO DISCUSS WITH MD TODAY. DISCUSSED WITH NURSING STAFF AND SURVEY CAD TECHNICIAN. WILL SEE PRN. Addendum: 07/23/19 at 1140 by SAUNDRA ESCOBAR RN Amended: Links added.
--- NOTE | 2019-07-23 14:00 | NUR ---
Informed Dr. Ayers regarding dressing change, MD ordered not to change dressing and leave as is.
--- NOTE | 2019-07-23 14:00 | NUR ---
Called Dr. Ayers and informed MD patient noted with scattered redness on left leg and swelling. With NNO from MD and to keep monitoring.
--- NOTE | 2019-07-23 14:30 | NUR ---
Patient seen by DR. Salgado with an order to do STAT CBC, Venous Doppler of left leg.
[2019-07-23 15:10] VITALS: BP 111/53
--- NOTE | 2019-07-23 15:18 | NUR ---
INTERDISCIPLINARY TEAM CONFERENCE
[2019-07-23] MEDS ORDERED: diphenhydrAMINE 25 MG CAP PO PRN (15:45)
[2019-07-23 16:30] LABS: BASOPHILS % (AUTO) 0.4 % (0.0-2.0); EOSINOPHILS # (AUTO) 0.5 K/uL (0.0-0.7); EOSINOPHILS % (AUTO) 6.2 % (0.0-7.0); HEMATOCRIT 32.3 % (31.2-41.9); HEMOGLOBIN 10.6 g/dL (10.9-14.3); LYMPHOCYTES # (AUTO) 1.8 K/uL (20.0-40.0); LYMPHOCYTES % (AUTO) 24.4 % (20.5-51.5); MEAN CORPUSCULAR HEMOGLOBIN 26.6 uug (24.7-32.8); MEAN CORPUSCULAR HGB CONC 33 g/dL (32.3-35.6); MEAN CORPUSCULAR VOLUME 80.7 fL (75.5-95.3); MONOCYTES # (AUTO) 0.5 K/uL (2.0-10.0); MONOCYTES % (AUTO) 7.2 % (0.0-11.0); NEUTROPHILS # (AUTO) 4.5 K/uL (1.8-8.9); NEUTROPHILS % (AUTO) 61.8 % (38.5-71.5); PLATELET COUNT (AUTO) 209 K/uL (179-408); WHITE BLOOD COUNT (AUTO) 7.4 K/uL (3.8-11.8)
[2019-07-23] MEDS ORDERED: HYDROCORTISONE 1% CREAM 30 GM TUBE TP PRN (17:00)
--- NOTE | 2019-07-23 18:16 | NUR ---
Patient is AAO X 4, able to express needs verbally, NO acute distress. Vital signs stable for patient. Left knee surgical site with original dressing in place, LLE noted with swelling and slight warmth., NO c/o of new onset of pain. NO c/o of discomfort on surgical site. Patient on PT/OT therapy. Uses w/c and walker to ambulate. BRP. Patient with one person assist for care. All due meds administered as ordered and scheduled and tolerated well. All other needs attended, safety measures in place, call light left at bed side and will continue with care.
--- NOTE | 2019-07-23 19:45 | NUR ---
Awake, alert, busy talking loud in her cell phone. No s/s off pain/discomforts at this time. Left knee dressing dry and intact with swelling noted. CPM in used on left LE tolerated well. Safety measure and fall precaution maintained. Continue care as planned.
[2019-07-23 20:00] VITALS: BP_SYST 133; BP_SYST 150; BP_DIAS 41; BP_DIAS 80
[2019-07-24] MEDS: ACETAMINOPHEN 325 MG TABLET PO PRN (02:33)
[2019-07-24 04:00] VITALS: BP 119/62
[2019-07-24] MEDS: GABAPENTIN 100 MG CAPSULE PO SCH ×3 (06:15→21:22)
--- NOTE | 2019-07-24 06:25 | NUR ---
Shift End Report: VS stable. Slept good. Medicated 3x for complaint of pain with relief. No further complaint presented. All needs attended and met. No significant event reported. Continue current rehab plan of care.
[2019-07-24] MEDS: ASPIRIN EC 325 MG TABLET.DR PO SCH ×2 (08:19→17:42)
[2019-07-24] MEDS: DOCUSATE SODIUM 100 MG CAPSULE PO SCH ×2 (08:19→17:42)
[2019-07-24] MEDS: MULTIVITAMINS,THERAPEUTIC TABLET PO SCH (08:19)
[2019-07-24] MEDS: [UNRECOGNIZED DRUG - OTHER] PO SCH (08:20)
[2019-07-24] MEDS: VIT D3 2000 IU PO SCH (08:20)
[2019-07-24] MEDS: OXYCODONE/APAP 5-325 MG TABLET PO PRN ×3 (08:22→17:44)
[2019-07-24 09:28] VITALS: BP 127/68
--- NOTE | 2019-07-24 09:59 | NUR ---
Patient noted sitting in bed, call light in reach, bed locked and in lowest position, PRN Pain medication given prior to therapy, no signs of distress noted, all needs met at this time
[2019-07-24] MEDS: MAG HYDROX/AL HYDROX/SIMETH 30 ML LIQUID UDC PO PRN ×2 (11:35→20:56)
[2019-07-24 16:37] VITALS: BP 133/66
[2019-07-24 20:18] VITALS: BP 115/59
--- NOTE | 2019-07-24 22:15 | NUR ---
aaox4 ambulates with cane. patient independent with ADL's .Needs attended. Fall precautions maintained. Siderails up for safety. Left knee dressing intact. Continent of bowel and bladder. Kept clean and dry. VSS. Will monitor patient.
[2019-07-25] MEDS: OXYCODONE/APAP 5-325 MG TABLET PO PRN ×4 (00:59→17:16)
[2019-07-25 04:15] VITALS: BP 116/57
[2019-07-25] MEDS: GABAPENTIN 100 MG CAPSULE PO SCH ×3 (05:28→22:07)
--- NOTE | 2019-07-25 06:54 | NUR ---
End of shift note: Medicated with percocet for pain left knee. VSS. No acute distress noted. Ambulates with cane to the BR. Voiding freely. Will monitor patient. Needs attended.
[2019-07-25 08:00] VITALS: BP 117/58
--- NOTE | 2019-07-25 08:01 | NUR ---
Patient noted resting in bed with eyes closed, call light in reach, bed locked and in lowest position, patient premedicate with pain medication prior to therapy by can cutter nurse, no signs of distress noted, all needs met at this time
[2019-07-25] MEDS: MULTIVITAMINS,THERAPEUTIC TABLET PO SCH (09:02)
[2019-07-25] MEDS: DOCUSATE SODIUM 100 MG CAPSULE PO SCH ×2 (09:03→17:16)
[2019-07-25] MEDS: ASPIRIN EC 325 MG TABLET.DR PO SCH ×2 (09:03→17:16)
[2019-07-25] MEDS: VIT D3 2000 IU PO SCH (09:03)
[2019-07-25] MEDS: [UNRECOGNIZED DRUG - OTHER] PO SCH (09:03)
--- NOTE | 2019-07-25 10:10 | NUR ---
INDIVIDUALIZED PLAN OF CARE
[2019-07-25 12:00] VITALS: BP 118/47
[2019-07-25 16:44] VITALS: BP 120/60
[2019-07-25] MEDS: MAG HYDROX/AL HYDROX/SIMETH 30 ML LIQUID UDC PO PRN (20:34)
[2019-07-25 20:37] VITALS: BP 121/45
[2019-07-26] MEDS: OXYCODONE/APAP 5-325 MG TABLET PO PRN ×4 (01:16→22:02)
[2019-07-26] MEDS: GABAPENTIN 100 MG CAPSULE PO SCH ×3 (06:09→21:30)
[2019-07-26 06:36] VITALS: BP 110/60
--- NOTE | 2019-07-26 06:58 | NUR ---
Received patient resting in bed. aaox4, no signs and symptoms of distress noted, denies any pain at the time. Ambulates with cane. patient independent with ADL's .Needs attended. Fall precautions maintained. Left knee dressing intact. Kept clean and dry.Medicated patient with Percocet for pain, effective. Will continue plan of care with rehab, endorse report to next shift.
[2019-07-26 08:00] VITALS: BP 115/53
--- NOTE | 2019-07-26 08:10 | NUR ---
Patient noted sitting up in bed watching TV, call light in reach, bed locked and in lowest position, will premedicate with pain medication prior to therapy, no signs of distress noted, all needs met at this time
[2019-07-26] MEDS: ASPIRIN EC 325 MG TABLET.DR PO SCH ×2 (09:21→17:44)
[2019-07-26] MEDS: DOCUSATE SODIUM 100 MG CAPSULE PO SCH ×2 (09:21→17:44)
[2019-07-26] MEDS: [UNRECOGNIZED DRUG - OTHER] PO SCH (09:21)
[2019-07-26] MEDS: VIT D3 2000 IU PO SCH (09:21)
[2019-07-26] MEDS: MULTIVITAMINS,THERAPEUTIC TABLET PO SCH (09:21)
--- NOTE | 2019-07-26 16:00 | NUR ---
Received report from RN. Patient asleep, easily arousable stating relief from pain with use of pain medication administered by reporting RN.
[2019-07-26 16:27] VITALS: BP 113/54
--- NOTE | 2019-07-26 18:45 | NUR ---
Due medications administered and tolerated well. Assisted with her needs promptly. Call light and frequently used items placed within patient's reach. Safety measures maintained.
[2019-07-26 20:39] VITALS: BP_SYST 120; BP_SYST 127; BP_DIAS 47; BP_DIAS 62
[2019-07-26] MEDS: MAG HYDROX/AL HYDROX/SIMETH 30 ML LIQUID UDC PO PRN (21:33)
[2019-07-27] MEDS: OXYCODONE/APAP 5-325 MG TABLET PO PRN ×4 (04:08→23:53)
--- NOTE | 2019-07-27 05:13 | NUR ---
Received patient resting in bed. aaox4, no signs and symptoms of distress noted, denies any pain at the time. Ambulates with cane. Patient independent with ADL's .Needs attended too. Fall precautions maintained. Left knee dressing intact. Kept clean and dry.Medicated patient with Percocet for pain, effective. Will continue plan of care with rehab, endorse report to next shift.
[2019-07-27] MEDS: GABAPENTIN 100 MG CAPSULE PO SCH ×3 (06:20→21:23)
[2019-07-27 06:38] VITALS: BP 120/40
[2019-07-27] MEDS: MULTIVITAMINS,THERAPEUTIC TABLET PO SCH (08:58)
[2019-07-27] MEDS: DOCUSATE SODIUM 100 MG CAPSULE PO SCH ×2 (08:58→16:58)
[2019-07-27] MEDS: ASPIRIN EC 325 MG TABLET.DR PO SCH ×2 (08:58→16:58)
[2019-07-27] MEDS: VIT D3 2000 IU PO SCH (09:01)
[2019-07-27] MEDS: [UNRECOGNIZED DRUG - OTHER] PO SCH (09:01)
[2019-07-27] MEDS: MAGNESIUM HYDROXIDE 30 ML LIQUID UDC PO PRN (09:03)
[2019-07-27 16:15] VITALS: BP 124/62
[2019-07-27] MEDS: MAG HYDROX/AL HYDROX/SIMETH 30 ML LIQUID UDC PO PRN (19:44)
[2019-07-27 20:15] VITALS: BP 120/58
[2019-07-28 04:15] VITALS: BP 106/60
[2019-07-28] MEDS: GABAPENTIN 100 MG CAPSULE PO SCH ×3 (05:04→23:37)
[2019-07-28] MEDS: ACETAMINOPHEN 325 MG TABLET PO PRN (05:04)
--- NOTE | 2019-07-28 06:21 | NUR ---
Patient slept intermittently. No SOB noted. Medicated w/ PRN Percocet 5-325mg 2 tabs x 1 this shift for L knee pain. All needs attended. Will endorse accordingly
[2019-07-28 08:00] VITALS: BP 110/56
--- NOTE | 2019-07-28 08:04 | NUR ---
Patient AAO x 4, in bed ans awake. Greeted patient, no acute distress noted. Vital signs stable for patient. Patient asked for Percocet 5/325mg before PT/OT. Safety measures in place and will continue with care.
[2019-07-28] MEDS: ASPIRIN EC 325 MG TABLET.DR PO SCH ×2 (08:59→16:00)
[2019-07-28] MEDS: DOCUSATE SODIUM 100 MG CAPSULE PO SCH ×2 (08:59→16:00)
[2019-07-28] MEDS: MULTIVITAMINS,THERAPEUTIC TABLET PO SCH (08:59)
[2019-07-28] MEDS: VIT D3 2000 IU PO SCH (08:59)
[2019-07-28] MEDS: [UNRECOGNIZED DRUG - OTHER] PO SCH (09:00)
[2019-07-28] MEDS: OXYCODONE/APAP 5-325 MG TABLET PO PRN ×2 (10:36→15:52)
[2019-07-28] MEDS: MAG HYDROX/AL HYDROX/SIMETH 30 ML LIQUID UDC PO PRN ×2 (14:19→20:05)
[2019-07-28] MEDS: MAGNESIUM HYDROXIDE 30 ML LIQUID UDC PO PRN (14:20)
--- NOTE | 2019-07-28 14:27 | NUR ---
Left knee surgical site with original dressing in place, left leg normal to touch no swelling or any redness noted. Pt. on PT/OT therapy able to walk with a cane. Pt. independent with most care. Safety measures in place and will continue with care.
[2019-07-28 16:00] VITALS: BP 133/67
--- NOTE | 2019-07-28 19:30 | NUR ---
Awake and alert , in bed, watching TV during initial rounds. No s/s of respiratory distress. Denies nay pain/discomforts at this time. Left knee with surgical dressing dry and intact, in CPM machine as ordered, tolerated well. Safety measures andd fall precaution maintained. Continue care as planned.
--- NOTE | 2019-07-28 19:51 | NUR ---
Endorsed to next shift and will continue with care.
[2019-07-28 20:12] VITALS: BP 110/47
[2019-07-29] MEDS: OXYCODONE/APAP 5-325 MG TABLET PO PRN ×4 (01:34→21:01)
[2019-07-29 04:12] VITALS: BP 115/59
[2019-07-29] MEDS: GABAPENTIN 100 MG CAPSULE PO SCH ×3 (05:06→21:01)
--- NOTE | 2019-07-29 05:25 | NUR ---
Shift End Report: Vs stable. Slept fairly. Watching TV late and on the phone most of the time. Medicated once for pain with relief. Ambulatory with cane with no incident of fall. All needs attended and met. No significant event reported all night. Continue current rehab plan of care.
[2019-07-29 06:46] LABS: BASOPHILS # (AUTO) 0.1 K/uL (0.0-8.0); BASOPHILS % (AUTO) 0.8 % (0.0-2.0); EOSINOPHILS # (AUTO) 0.4 K/uL (0.0-0.7); EOSINOPHILS % (AUTO) 6.4 % (0.0-7.0); HEMATOCRIT 31.6 % (31.2-41.9); HEMOGLOBIN 10.3 g/dL (10.9-14.3); LYMPHOCYTES # (AUTO) 1.9 K/uL (20.0-40.0); LYMPHOCYTES % (AUTO) 28.1 % (20.5-51.5); MEAN CORPUSCULAR HEMOGLOBIN 26.4 uug (24.7-32.8); MEAN CORPUSCULAR HGB CONC 33 g/dL (32.3-35.6); MEAN CORPUSCULAR VOLUME 80.9 fL (75.5-95.3); MONOCYTES # (AUTO) 0.5 K/uL (2.0-10.0); MONOCYTES % (AUTO) 7.4 % (0.0-11.0); NEUTROPHILS % (AUTO) 57.3 % (38.5-71.5); WHITE BLOOD COUNT (AUTO) 6.9 K/uL (3.8-11.8)
[2019-07-29 06:47] LABS: MAGNESIUM 2.5 mg/dL (1.8-2.4); PHOSPHOROUS 4.1 mg/dL (2.5-4.9); POTASSIUM 4.6 mmol/L (3.5-5.1)
--- NOTE | 2019-07-29 08:08 | NUR ---
Patient in bed and awake, AAO x 4, NO acute distress. NO complains of pain at this time, safety measures in place and will continue with care.
[2019-07-29] MEDS: DOCUSATE SODIUM 100 MG CAPSULE PO SCH ×2 (08:34→17:27)
[2019-07-29] MEDS: MULTIVITAMINS,THERAPEUTIC TABLET PO SCH (08:34)
[2019-07-29] MEDS: ASPIRIN EC 325 MG TABLET.DR PO SCH ×2 (08:34→17:27)
[2019-07-29] MEDS: VIT D3 2000 IU PO SCH (08:36)
[2019-07-29] MEDS: [UNRECOGNIZED DRUG - OTHER] PO SCH (08:36)
[2019-07-29 08:44] LABS: PLATELET COUNT (AUTO) 304 K/uL (179-408)
[2019-07-29] MEDS: MAG HYDROX/AL HYDROX/SIMETH 30 ML LIQUID UDC PO PRN (11:39)
[2019-07-29 15:54] VITALS: BP 129/58
[2019-07-29] MEDS: ACETAMINOPHEN 325 MG TABLET PO PRN (17:28)
--- NOTE | 2019-07-29 18:13 | NUR ---
Patient in stable condition, no acute distress, VS stable. PT/OT therapy continued. Left knee surgical site with original dressing in place, left leg normal to touch no swelling or any redness noted. All due medications administered as ordered and scheduled. Percocet 5/325mg 2 tabs administered for left leg pain of 7/10 and effective, no s/sx of sedation noted. Patient ambulatory with a cane. Safety measures in place, needs attended and met, call light left at bed side and will continue with care.
[2019-07-29 20:00] VITALS: BP 119/54
--- NOTE | 2019-07-29 21:02 | NUR ---
Received pt resting in bed and talking on the phone. AAO x4. No acute distress noted. C/o of 7/10 pain. PRN pain med and other due med given as ordered. Safety measures maintained. Call light and personal items within reach. Will continue to monitor.
[2019-07-30] MEDS: OXYCODONE/APAP 5-325 MG TABLET PO PRN ×4 (02:58→21:25)
[2019-07-30] MEDS: GABAPENTIN 100 MG CAPSULE PO SCH ×3 (05:50→21:24)
[2019-07-30] MEDS: DOCUSATE SODIUM 100 MG CAPSULE PO SCH ×2 (08:08→16:03)
[2019-07-30] MEDS: ASPIRIN EC 325 MG TABLET.DR PO SCH ×2 (08:08→16:03)
[2019-07-30] MEDS: MULTIVITAMINS,THERAPEUTIC TABLET PO SCH (08:08)
[2019-07-30] MEDS: [UNRECOGNIZED DRUG - OTHER] PO SCH (08:12)
[2019-07-30] MEDS: VIT D3 2000 IU PO SCH (08:13)
[2019-07-30 08:25] VITALS: BP 147/67
[2019-07-30] MEDS: ACETAMINOPHEN 325 MG TABLET PO PRN (13:57)
--- NOTE | 2019-07-30 15:26 | NUR ---
patient is alert, oriented x4, verbally responsive, no sob, resp even nonlabored, pain is managed with pain medication and with distraction. examined by dr Salgado, no distress noted
--- NOTE | 2019-07-30 16:02 | NUR ---
INTERDISCIPLINARY TEAM CONFERENCE
[2019-07-30 16:24] VITALS: BP 121/58
[2019-07-30 20:17] VITALS: BP 126/46
[2019-07-30] MEDS: MAG HYDROX/AL HYDROX/SIMETH 30 ML LIQUID UDC PO PRN (20:28)
--- NOTE | 2019-07-31 02:55 | NUR ---
Received patient in bed. AAO x4. No acute distress or SOB was noted. Complained of pain in the left knee, rated her pain 6/10 in numeric scale. PRN Percocet 5-325 mg administered and effective. On room air. Physical assessment done. safety measures maintain, fall prevention observed. Skin assessed. All due medication administered and well tolerated. Pain assesses and reassessed after pain medication. All needs attended promptly. Bed in locked and low position, side rails up x2 for safety, bed alarm on. Call light and frequently using items within reach. Continue to monitor and will endorse to the day shift nurse.
[2019-07-31 05:26] VITALS: BP 106/66
[2019-07-31] MEDS: GABAPENTIN 100 MG CAPSULE PO SCH ×3 (06:00→21:05)
[2019-07-31] MEDS: DOCUSATE SODIUM 100 MG CAPSULE PO SCH ×2 (08:29→16:36)
[2019-07-31] MEDS: [UNRECOGNIZED DRUG - OTHER] PO SCH (08:29)
[2019-07-31] MEDS: ASPIRIN EC 325 MG TABLET.DR PO SCH ×2 (08:29→16:36)
[2019-07-31] MEDS: VIT D3 2000 IU PO SCH (08:29)
[2019-07-31] MEDS: MULTIVITAMINS,THERAPEUTIC TABLET PO SCH (08:29)
[2019-07-31] MEDS: OXYCODONE/APAP 5-325 MG TABLET PO PRN ×3 (08:30→21:11)
[2019-07-31 08:47] VITALS: BP 132/63
--- NOTE | 2019-07-31 10:10 | NUR ---
Patient is off unit for therapy.
[2019-07-31] MEDS: MAG HYDROX/AL HYDROX/SIMETH 30 ML LIQUID UDC PO PRN ×2 (14:32→21:11)
--- NOTE | 2019-07-31 17:31 | NUR ---
Stable, no distress noted. Pain managed with PRN percocet. PRN mylanta given today. Left knee dressing clean dry and intact. Patient alert and oriented, compliant with treatment and care plan. Followed by therapy, kindly refer to note. No acute events. End of shift chart check done, will endorse care to oncoming shift.
[2019-07-31 20:33] VITALS: BP 102/48
[2019-07-31] MEDS: ACETAMINOPHEN 325 MG TABLET PO PRN (22:24)
[2019-08-01] MEDS: OXYCODONE/APAP 5-325 MG TABLET PO PRN ×5 (04:07→23:22)
[2019-08-01 04:27] VITALS: BP 114/58
[2019-08-01] MEDS: GABAPENTIN 100 MG CAPSULE PO SCH ×3 (05:03→21:42)
--- NOTE | 2019-08-01 08:00 | NUR ---
Pt alert and oriented x 4. Instructed pt to notify nursing for any assistance needed when getting oob to bathroom. Plan of care for Fall precaution, pain management, and constipation, implemented. Pt agreeable with plan of care.
[2019-08-01] MEDS: DOCUSATE SODIUM 100 MG CAPSULE PO SCH ×2 (08:34→15:23)
[2019-08-01] MEDS: MULTIVITAMINS,THERAPEUTIC TABLET PO SCH (08:35)
[2019-08-01] MEDS: ASPIRIN EC 325 MG TABLET.DR PO SCH ×2 (08:35→17:41)
[2019-08-01] MEDS: [UNRECOGNIZED DRUG - OTHER] PO SCH (08:38)
[2019-08-01] MEDS: VIT D3 2000 IU PO SCH (08:38)
[2019-08-01] MEDS: MAGNESIUM HYDROXIDE 30 ML LIQUID UDC PO PRN ×2 (08:43→17:58)
[2019-08-01 11:47] VITALS: BP 135/57
--- NOTE | 2019-08-01 12:00 | NUR ---
Dressing change as ordered per JANEL Woodward. Noted incision with babs and no redness noted. Dry dressing applied and covered with surgical dressing.
[2019-08-01 16:00] VITALS: BP 115/49
--- NOTE | 2019-08-01 18:44 | NUR ---
Pt was given mom x 2 today with still no results. Pt's pain managed with percocet tabs effective on lowering pts pain to 2/10. No fall noted this shift. Pt tolerated physical therapy. Pt able to tolerated cpm machine @ 85 degrees. Pt was independent on self care. dressing on left knee picture taken.
[2019-08-02] MEDS: GABAPENTIN 100 MG CAPSULE PO SCH ×3 (05:14→21:32)
[2019-08-02 05:32] VITALS: BP 116/54
[2019-08-02 07:30] VITALS: BP 110/53
[2019-08-02] MEDS: OXYCODONE/APAP 5-325 MG TABLET PO PRN ×2 (09:30→21:33)
[2019-08-02] MEDS: VIT D3 2000 IU PO SCH (09:34)
[2019-08-02] MEDS: [UNRECOGNIZED DRUG - OTHER] PO SCH (09:34)
[2019-08-02] MEDS: DOCUSATE SODIUM 100 MG CAPSULE PO SCH ×2 (09:34→16:37)
[2019-08-02] MEDS: ASPIRIN EC 325 MG TABLET.DR PO SCH ×2 (09:34→16:37)
[2019-08-02] MEDS: MULTIVITAMINS,THERAPEUTIC TABLET PO SCH (09:34)
--- NOTE | 2019-08-02 09:39 | NUR ---
Patient noted resting in bed watching tv, complaints of pain in left knee, prn percocet given, no signs of distress noted, call light in reach,bed locked and in lowest position, all needs met at this time
--- NOTE | 2019-08-02 09:44 | NUR ---
Patient noted resting in bed with eyes closed, no complaints of pain, no signs of distress noted, call light in reach, bed locked and in lowest position, all needs met at this time Addendum: 08/02/19 at 0946 by VLADIMIR TAVERAS RN RN ERROR WRONG PATIENT
[2019-08-02] MEDS: MAG HYDROX/AL HYDROX/SIMETH 30 ML LIQUID UDC PO PRN ×2 (11:18→21:16)
[2019-08-02] MEDS: MAGNESIUM HYDROXIDE 30 ML LIQUID UDC PO PRN (11:24)
[2019-08-02 16:00] VITALS: BP 139/60
--- NOTE | 2019-08-02 18:35 | NUR ---
no changes noted this shift, all needs met
[2019-08-02 19:59] VITALS: BP 91/40
[2019-08-02 20:02] VITALS: BP 91/40
--- NOTE | 2019-08-02 21:35 | NUR ---
Received pt resting in bed. AAO x4. No acute distress noted. C/o of 6/10 pain. PRN pain med and other due med given as ordered. Pt to be discharge tomorrow. Safety measures maintained. Call light and personal items within reach. Will continue to monitor.
[2019-08-03] MEDS: OXYCODONE/APAP 5-325 MG TABLET PO PRN ×2 (02:13→09:16)
[2019-08-03 05:11] VITALS: BP 106/49
[2019-08-03] MEDS: GABAPENTIN 100 MG CAPSULE PO SCH (05:53)
[2019-08-03 07:48] VITALS: BP 118/51
[2019-08-03] MEDS: ASPIRIN EC 325 MG TABLET.DR PO SCH (09:13)
[2019-08-03] MEDS: MULTIVITAMINS,THERAPEUTIC TABLET PO SCH (09:13)
[2019-08-03] MEDS: VIT D3 2000 IU PO SCH (09:14)
[2019-08-03] MEDS: DOCUSATE SODIUM 100 MG CAPSULE PO SCH (09:14)
[2019-08-03] MEDS: [UNRECOGNIZED DRUG - OTHER] PO SCH (09:14)
[2019-08-03] MEDS: MAG HYDROX/AL HYDROX/SIMETH 30 ML LIQUID UDC PO PRN (10:29)
--- NOTE | 2019-08-03 10:45 | NUR ---
Received discharge order to home from Dr. Salgado. Patient aware and agreeable.
--- NOTE | 2019-08-03 11:10 | NUR ---
Discharge instructions provided to the patient with verbalized understanding. Discharge papers signed by and given to the patient. All belongings well accounted for and sent with the patient including home medications. Dressing change done with noted clean and dry, left knee surgical incision well coaptated with babs on, no discharges, no signs of infection. Discharge photos taken. Patient remains alert, oriented x 4, not in any form of distress , on room air. Vital signs stable. Patient ambulatory using cane. No complain of any pain at this time. Assisted safely to the lobby via wheelchair. Discharged patient to home, picked up by transportation set up by insurance at 11AM. Faxed medications to preferred pharmacy.
== END 2019-08-03 11:00 | disposition home or self-care (01) | DRG 560 ==
PROVIDERS: ADMIT Physical Medicine & Rehabilitation Pain Medicine; ATTEND Physical Medicine & Rehabilitation Pain Medicine
DX: Z47.89 Encounter for other orthopedic aftercare (principal); D68.59 Other primary thrombophilia; Z96.652 Presence of left artificial knee joint; D50.9 Iron deficiency anemia, unspecified; E89.0 Postprocedural hypothyroidism; E66.9 Obesity, unspecified; Z68.33 Body mass index [BMI] 33.0-33.9, adult; M19.90 Unspecified osteoarthritis, unspecified site; K59.00 Constipation, unspecified; K21.9 Gastro-esophageal reflux disease without esophagitis; Z88.0 Allergy status to penicillin
CPT/HCPCS: 36415; 82652; 83735; 84100; 84443; 85025; A4663

== ENCOUNTER 2019-11-24 18:10 | Inpatient (IN) | payer OTHER ==
[~2019-11-24] VITALS: Ht 165.1 cm; Wt 95.7 kg
[~2019-11-24 18:10] MED LIST changes: -CHOL10002 PO; -FAMO-132 PO; +GABA100C PO; -MAG355OR18 PO; +OXYC-133 PO; -OXYC15TA2 PO
[2019-11-25] MEDS ORDERED: Z GUARD REMEDY PASTE 57 GM TUBE TOP PRN (14:45)
[2019-11-25] MEDS ORDERED: SENN-18 PO (15:10)
[2019-11-25] MEDS ORDERED: HYDR1VIA2 IJ (15:10)
[2019-11-25] MEDS ORDERED: OXYC10TA49 PO (15:10)
[2019-11-25] MEDS ORDERED: MAG355OR18 PO (15:10)
[2019-11-25] MEDS ORDERED: CHOL10002 PO (15:10)
[2019-11-25] MEDS ORDERED: OXYC15TA2 PO (15:10)
[2019-11-25] MEDS ORDERED: FAMO20TA8 PO (15:10)
[2019-11-25] MEDS ORDERED: NALO0.4D4 IV (15:10)
[2019-11-25 16:30] VITALS: BP 156/61
[2019-11-25] MEDS ORDERED: OXYCODONE HCL 5 MG TABLET PO PRN (16:30)
--- NOTE | 2019-11-25 19:00 | NUR ---
Received report from outgoing nurse.
[2019-11-25] MEDS ORDERED: HYDROMORPHONE 1 MG/1 ML DISP.SYRIN IM STA (19:14)
[2019-11-25] MEDS ORDERED: HYDROMORPHONE 1 MG/1 ML DISP.SYRIN IM PRN (19:15)
[2019-11-25] MEDS ORDERED: MORPHINE SULFATE SR 15 MG TABLET.SA PO SCH (19:15)
[2019-11-25] MEDS: SENNOSIDES 1 TABLET PO SCH (20:08)
[2019-11-25 20:15] VITALS: BP 142/58
--- NOTE | 2019-11-25 20:40 | NUR ---
Routine admission care done. Plan of care initiated. Admission frequently interrupted to attend patient needs. Patients presented a lot of complaints, requests left and right. Very inpatient and needy. BSC provided.
[2019-11-25] MEDS: MORPHINE SULFATE SR 15 MG TABLET.SA PO SCH (21:23)
[2019-11-25] MEDS: GABAPENTIN 100 MG CAPSULE PO SCH (21:25)
[2019-11-25] MEDS: LORAZEPAM 0.5 MG TABLET PO PRN (23:47)
[2019-11-26 04:00] VITALS: BP 129/57
[2019-11-26] MEDS: MORPHINE SULFATE SR 15 MG TABLET.SA PO SCH ×2 (04:05→12:16)
[2019-11-26] MEDS: GABAPENTIN 100 MG CAPSULE PO SCH ×3 (05:14→21:47)
--- NOTE | 2019-11-26 05:58 | NUR ---
Shift End report: Quite a busy day/shift with this patient that demands overwhelming, hard to please. and very vocal. Medicated for pain as needed and ordered with help. Slept fairly. Ambulatory to the bathroom although BSC provided at bedside. Wound care done, tolerated well. Anticipated needs. Continue current rehab plan of care.
[2019-11-26] MEDS: ASPIRIN EC 325 MG TABLET.DR PO SCH ×2 (09:25→16:54)
[2019-11-26] MEDS: DOCUSATE SODIUM 100 MG CAPSULE PO SCH ×2 (09:25→16:54)
[2019-11-26] MEDS: SENNOSIDES 1 TABLET PO SCH ×2 (09:25→16:54)
[2019-11-26] MEDS: CHOLECALCIFEROL 1,000 UNIT TABLET PO SCH (09:25)
[2019-11-26] MEDS: OXYCODONE HCL 5 MG TABLET PO PRN ×4 (09:27→22:36)
--- NOTE | 2019-11-26 10:30 | NUR ---
Patient is AAO x 4,. No acute distress notes. Vital signs stable for patient. Right dressing intact and rapped with taylor-bandage. All due morning meds administered as ordered and scheduled. Patient asked for pain med before PT/OT for right knee pain and OxyIR 10mg PO 2 tabs administered as ordered. Patient seemed anxious during assessment. Answered patient' concerns and plan of care. Patient verbalized understanding of patient teaching. Needs attended, safety measures in place, call light left at bed side and will continue with care.
[2019-11-26] MEDS: MAGNESIUM HYDROXIDE 30 ML LIQUID UDC PO PRN (14:26)
--- NOTE | 2019-11-26 14:32 | NUR ---
Cv Tech Note: SW provided patient with the following caregiving resources: [facility]; ([phone]), [facility]; ([phone]), [facility]; ([phone]). hospitality workers will continue to remain available to patient and provide ongoing supportive counseling and assess for any psychosocial needs. hospitality workers will encourage patient to comply with ARU goals of care.
[2019-11-26 15:38] VITALS: BP 148/76
--- NOTE | 2019-11-26 18:47 | NUR ---
Patient calm and in bed at this time. Right knee surgical site dressing intact and dry. BLE elevated. Patient is ambulatory with a walker and stand by assist. ON pain mgnt of OXYIR 10mg PO q 4hrs prn and MS 30mg PO q 12hrs routine. All other needs attended, skin kept clean and dry. Made comfortable, call light left at bed side and will continue with care.
--- NOTE | 2019-11-26 19:45 | NUR ---
Up and about in the hallways with FWW as tolerated. Right knee dressing dry and intact. Safety measures and fall prevention observed. Continue care as planned.
[2019-11-26] MEDS: LIPO FLAVONOID PO SCH (20:00)
[2019-11-26 20:02] VITALS: BP 125/52
[2019-11-26] MEDS: MORPHINE SULFATE SR 30 MG TABLET.SA PO SCH (20:05)
--- NOTE | 2019-11-26 20:09 | NUR ---
INTERDISCIPLINARY TEAM CONFERENCE
[2019-11-26 22:22] LABS: *BILIRUBIN,URIN NEGATIVE (NEGATIVE); *CLARITY,URINE CLEAR (CLEAR); *COLOR,URINE YELLOW (YELLOW); *KETONES,URINE NEGATIVE (NEGATIVE); *UROBILINOGEN,URINE 0.2 E.U./dl (NORMAL); LEUKOCYTE ESTERASE ,URINE 2+ (NEGATIVE); NITRITE, URINE NEGATIVE (NEGATIVE); PH,URINE 7.5 (5.0-8.0); UGLUCOSE NEGATIVE (NEGATIVE)
[2019-11-26 22:23] LABS: *BLOOD, URINE TRACE INTACT (NEGATIVE)
[2019-11-26] MEDS: MAG HYDROX/AL HYDROX/SIMETH 30 ML LIQUID UDC PO PRN (22:40)
[2019-11-26 23:51] LABS: BACTERIA,URINE NONE SEEN /HPF (NONE SEEN); SQUAMOUS EPITHELIAL CELL,UR FEW /HPF (NONE SEEN); URINE AMORPHOUS PHOSPHATES FEW /HPF
[2019-11-27] MEDS: OXYCODONE HCL 5 MG TABLET PO PRN ×2 (02:40→22:06)
[2019-11-27 04:00] VITALS: BP 136/71
[2019-11-27] MEDS: MORPHINE SULFATE SR 30 MG TABLET.SA PO SCH ×3 (04:33→19:48)
--- NOTE | 2019-11-27 06:49 | NUR ---
Shift End Report: General condition remain the same. Pain medication round the clock with minimal relief, Ice pack/compress applied to right knee incision site with little help. Patients needs left and right, attended. Ambulatory with walker with poor endurance. Continue care as planned.
[2019-11-27 07:30] VITALS: BP 131/67
--- NOTE | 2019-11-27 07:55 | NUR ---
Received patient in bed, Pt. is AAO x 4. No acute distress noted. VS stable. Right knee surgical site with dressing intact and dry. Safety measures in place and will continue with care.
[2019-11-27] MEDS: MAGNESIUM HYDROXIDE 30 ML LIQUID UDC PO PRN (08:02)
[2019-11-27] MEDS ORDERED: PATIENT MAY USE OWN MED- MD OK PO SCH (09:00)
[2019-11-27] MEDS: GABAPENTIN 300 MG CAPSULE PO SCH ×3 (09:07→17:00)
[2019-11-27] MEDS: ASPIRIN EC 325 MG TABLET.DR PO SCH ×2 (09:07→17:00)
[2019-11-27] MEDS: SENNOSIDES 1 TABLET PO SCH ×2 (09:07→17:00)
[2019-11-27] MEDS: DOCUSATE SODIUM 100 MG CAPSULE PO SCH ×2 (09:07→17:00)
[2019-11-27] MEDS: CHOLECALCIFEROL 1,000 UNIT TABLET PO SCH (09:07)
[2019-11-27] MEDS: LIPO FLAVONOID PO SCH (09:13)
[2019-11-27] MEDS: MAG HYDROX/AL HYDROX/SIMETH 30 ML LIQUID UDC PO PRN ×2 (14:38→20:43)
--- NOTE | 2019-11-27 15:34 | NUR ---
Patient assisted to the bathroom; patient stated and complained of constipation, screaming while being assisted in the bathroom and restless. Offered fluids and prune juice. MOM prn administered. Informed MD and with an order to give fleet enema prn daily. Will continue with care.
--- NOTE | 2019-11-27 15:41 | NUR ---
Offered patient fleet enema as ordered. Patient stated will wait and just take more prune juice. Needs attended and will continue with care.
--- NOTE | 2019-11-27 15:44 | NUR ---
Patient had BM and stated feeling much better.
[2019-11-27 16:00] VITALS: BP 146/70
--- NOTE | 2019-11-27 18:50 | NUR ---
Patient in bed, no acute distress noted. All due evening meds administered and tolerated well. Safety measures in place, needs attended, call light left at bed side and will continue with care.
--- NOTE | 2019-11-27 19:39 | NUR ---
End of shift report given to pm nurse.
[2019-11-27] MEDS: levoFLOXacin 500 MG TABLET PO SCH (20:30)
[2019-11-27 21:00] VITALS: BP 119/60
[2019-11-27] MEDS: LORAZEPAM 0.5 MG TABLET PO PRN (23:28)
[2019-11-28] MEDS: MORPHINE SULFATE SR 30 MG TABLET.SA PO SCH ×3 (04:41→20:02)
[2019-11-28 06:01] VITALS: BP 129/68
[2019-11-28] MEDS: CHOLECALCIFEROL 1,000 UNIT TABLET PO SCH (08:47)
[2019-11-28] MEDS: DOCUSATE SODIUM 100 MG CAPSULE PO SCH ×2 (08:47→17:00)
[2019-11-28] MEDS: OXYCODONE HCL 5 MG TABLET PO PRN ×3 (08:47→22:01)
[2019-11-28] MEDS: SENNOSIDES 1 TABLET PO SCH ×2 (08:47→17:00)
[2019-11-28] MEDS: GABAPENTIN 300 MG CAPSULE PO SCH ×3 (08:48→17:23)
[2019-11-28] MEDS: ASPIRIN EC 325 MG TABLET.DR PO SCH ×2 (08:48→17:23)
[2019-11-28] MEDS: LIPO FLAVONOID PO SCH (08:54)
--- NOTE | 2019-11-28 12:00 | NUR ---
Patient AAO/4, No acute distress noted. Vital signs stable. All due medications administered as ordered and scheduled. Patient on OXYir 10mg po PRN q 4hrs for pain mgnt. On PT/OT therapy. Skin kept clean and dry. Needs attended, safety measures in place and will continue with care.
[2019-11-28] MEDS: FAMOTIDINE 20 MG TABLET PO SCH (16:30)
[2019-11-28 16:31] VITALS: BP 134/47
--- NOTE | 2019-11-28 17:30 | NUR ---
Right knee dressing changed, incision site with babs,intact and dry. Will continue with care.
--- NOTE | 2019-11-28 19:30 | NUR ---
NSG: Received patient in bed, Patient is awake alert and oriented x 4. No acute distress noted. VS stable. Right knee surgical site with dressing intact and dry. call light w/in reach.
[2019-11-28 20:00] VITALS: BP 128/60
[2019-11-28] MEDS: levoFLOXacin 500 MG TABLET PO SCH (20:01)
[2019-11-28] MEDS: ACIDOPHILUS/BULGARICUS CHEW TAB PO SCH (20:01)
--- NOTE | 2019-11-28 20:16 | NUR ---
INDIVIDUALIZED PLAN OF CARE
[2019-11-29 04:00] VITALS: BP 105/53
[2019-11-29] MEDS: MORPHINE SULFATE SR 30 MG TABLET.SA PO SCH ×3 (04:16→19:57)
--- NOTE | 2019-11-29 04:37 | NUR ---
NSG: Remain cooperative with care. Pain medication round the clock with minimal relief, Ice pack/compress applied to right knee incision. patient is Ambulatory with walker with poor endurance. kept comfortable through the shift. call light w/in reach.
[2019-11-29 06:27] LABS: BASOPHILS % (AUTO) 0.7 % (0.0-2.0); EOSINOPHILS # (AUTO) 0.4 K/uL (0.0-0.7); EOSINOPHILS % (AUTO) 5.9 % (0.0-7.0); HEMATOCRIT 34.1 % (31.2-41.9); HEMOGLOBIN 11.1 g/dL (10.9-14.3); LYMPHOCYTES # (AUTO) 1.3 K/uL (20.0-40.0); LYMPHOCYTES % (AUTO) 18.7 % (20.5-51.5); MEAN CORPUSCULAR HGB CONC 33 g/dL (32.3-35.6); MONOCYTES # (AUTO) 0.5 K/uL (2.0-10.0); NEUTROPHILS # (AUTO) 4.5 K/uL (1.8-8.9); NEUTROPHILS % (AUTO) 66.7 % (38.5-71.5); PLATELET COUNT (AUTO) 283 K/uL (179-408); RED BLOOD CELL COUNT(AUTO) 4.26 MIL/uL (3.63-4.92); WHITE BLOOD COUNT (AUTO) 6.8 K/uL (3.8-11.8)
[2019-11-29 06:53] LABS: THYROID STIMULATING HORMONE 1.778 mIU/mL (0.358-3.740)
[2019-11-29 07:19] LABS: BILIRUBIN,TOTAL 0.4 mg/dL (0.2-1.0); CREATININE 0.9 mg/dL (0.6-1.3); MAGNESIUM 2.4 mg/dL (1.8-2.4); PHOSPHOROUS 4.3 mg/dL (2.5-4.9); POTASSIUM 4.4 mmol/L (3.5-5.1); TOTAL PROTEIN, SERUM 6.5 g/dL (6.4-8.2)
[2019-11-29 07:30] VITALS: BP 109/53
[2019-11-29] MEDS: DOCUSATE SODIUM 100 MG CAPSULE PO SCH ×3 (09:00→17:00)
[2019-11-29] MEDS: SENNOSIDES 1 TABLET PO SCH ×3 (09:00→17:00)
[2019-11-29] MEDS: FAMOTIDINE 20 MG TABLET PO SCH (09:58)
[2019-11-29] MEDS: OXYCODONE HCL 5 MG TABLET PO PRN ×2 (09:58→14:13)
[2019-11-29] MEDS: CHOLECALCIFEROL 1,000 UNIT TABLET PO SCH (09:59)
[2019-11-29] MEDS: GABAPENTIN 300 MG CAPSULE PO SCH ×3 (09:59→18:06)
[2019-11-29] MEDS: ACIDOPHILUS/BULGARICUS CHEW TAB PO SCH ×2 (09:59→21:05)
[2019-11-29] MEDS: ASPIRIN EC 325 MG TABLET.DR PO SCH ×2 (09:59→18:06)
[2019-11-29] MEDS: LIPO FLAVONOID PO SCH (10:00)
[2019-11-29] MEDS: MAG HYDROX/AL HYDROX/SIMETH 30 ML LIQUID UDC PO PRN (14:17)
[2019-11-29 16:00] VITALS: BP 126/58
[2019-11-29] MEDS: levoFLOXacin 500 MG TABLET PO SCH (19:57)
[2019-11-29 20:00] VITALS: BP 119/46
[2019-11-30] MEDS: OXYCODONE HCL 5 MG TABLET PO PRN ×3 (00:17→14:03)
[2019-11-30] MEDS: MORPHINE SULFATE SR 30 MG TABLET.SA PO SCH ×3 (03:52→20:07)
[2019-11-30 04:00] VITALS: BP 103/46
--- NOTE | 2019-11-30 05:48 | NUR ---
Shift End Report: Always complaining of right knee pain. Routine and PRN pain meds given round the clock with help. Ice pack in used .Slept in between. Right knee dressing dry and intact. Still with restricted movement on affected area. All needs attended and met. Continue rehab plan of care.
[2019-11-30 07:30] VITALS: BP 107/46
[2019-11-30] MEDS: GABAPENTIN 300 MG CAPSULE PO SCH ×3 (08:47→16:24)
[2019-11-30] MEDS: ASPIRIN EC 325 MG TABLET.DR PO SCH ×2 (08:47→16:23)
[2019-11-30] MEDS: ACIDOPHILUS/BULGARICUS CHEW TAB PO SCH ×2 (08:47→20:07)
[2019-11-30] MEDS: SENNOSIDES 1 TABLET PO SCH ×2 (08:47→16:23)
[2019-11-30] MEDS: CHOLECALCIFEROL 1,000 UNIT TABLET PO SCH (08:47)
[2019-11-30] MEDS: LIPO FLAVONOID PO SCH (08:48)
[2019-11-30] MEDS: FAMOTIDINE 20 MG TABLET PO SCH (08:48)
[2019-11-30] MEDS: DOCUSATE SODIUM 100 MG CAPSULE PO SCH ×2 (08:52→16:23)
[2019-11-30 16:00] VITALS: BP 131/55
--- NOTE | 2019-11-30 18:41 | NUR ---
patient stable throughout shift in bed, awake AOx4 on RA with no SOB or distress noted at this time. Pain management and safety precaution observed. Bed locked in lowest position with siderails 2x up. Cane and walker within reach. No other complaints at this time
--- NOTE | 2019-11-30 19:45 | NUR ---
Awake, busy talking on her cell phone. Reminding nurse about her pain medication. Patients wants to give her pain medications even if she's sleeping and have to wake her up. Right leg mobility/flexion improving. Ice pack in placed on right knee. Continue care as planned.
[2019-11-30] MEDS: levoFLOXacin 500 MG TABLET PO SCH (20:07)
[2019-11-30 20:15] VITALS: BP 129/42
[2019-12-01] MEDS: OXYCODONE HCL 5 MG TABLET PO PRN ×4 (00:29→22:44)
[2019-12-01] MEDS: MORPHINE SULFATE SR 30 MG TABLET.SA PO SCH ×3 (03:18→20:12)
[2019-12-01 04:53] VITALS: BP 129/84
[2019-12-01 08:31] VITALS: BP 112/53
[2019-12-01] MEDS: SENNOSIDES 1 TABLET PO SCH ×2 (08:43→16:34)
[2019-12-01] MEDS: FAMOTIDINE 20 MG TABLET PO SCH (08:43)
[2019-12-01] MEDS: DOCUSATE SODIUM 100 MG CAPSULE PO SCH ×2 (08:43→16:34)
[2019-12-01] MEDS: ACIDOPHILUS/BULGARICUS CHEW TAB PO SCH ×2 (08:43→20:12)
[2019-12-01] MEDS: ASPIRIN EC 325 MG TABLET.DR PO SCH ×2 (08:43→16:34)
[2019-12-01] MEDS: CHOLECALCIFEROL 1,000 UNIT TABLET PO SCH (08:43)
[2019-12-01] MEDS: GABAPENTIN 300 MG CAPSULE PO SCH ×3 (08:43→16:34)
[2019-12-01] MEDS: LIPO FLAVONOID PO SCH (08:44)
--- NOTE | 2019-12-01 14:32 | NUR ---
Patient is complaining of sharp stabbing pain on right calf. Informed Dr. Whitaker
[2019-12-01] MEDS: MAGNESIUM HYDROXIDE 30 ML LIQUID UDC PO PRN (16:34)
--- NOTE | 2019-12-01 16:36 | NUR ---
patient complained of constipation and not having a BM since 11/27. Gave Milk of magnesia with scheduled colace and senokot
--- NOTE | 2019-12-01 19:00 | NUR ---
Pt in bed awake AOx4, right knee pain improved. Doppler done earlier with negative results. Pain management observed. Safety precautions in place. No other complaints at this time
[2019-12-01 20:20] VITALS: BP 107/47
--- NOTE | 2019-12-01 20:35 | NUR ---
Received pt resting in bed and watching tv. AAO x4. No acute distress noted. C/o pain on the right knee, scheduled pain med and other due med given as ordered. Ice pack in place. Safety measures maintained. Call light and personal items within reach. Will continue to monitor.
[2019-12-01] MEDS: MAG HYDROX/AL HYDROX/SIMETH 30 ML LIQUID UDC PO PRN (21:29)
[2019-12-02] MEDS: LORAZEPAM 0.5 MG TABLET PO PRN (00:43)
[2019-12-02 04:00] VITALS: BP 116/58
[2019-12-02] MEDS: MORPHINE SULFATE SR 30 MG TABLET.SA PO SCH ×3 (04:41→20:32)
[2019-12-02 07:33] VITALS: BP 119/61
[2019-12-02] MEDS: FAMOTIDINE 20 MG TABLET PO SCH (08:56)
[2019-12-02] MEDS: ACIDOPHILUS/BULGARICUS CHEW TAB PO SCH ×2 (08:56→20:32)
[2019-12-02] MEDS: SENNOSIDES 1 TABLET PO SCH ×2 (08:56→16:44)
[2019-12-02] MEDS: GABAPENTIN 300 MG CAPSULE PO SCH ×3 (08:56→16:44)
[2019-12-02] MEDS: ASPIRIN EC 325 MG TABLET.DR PO SCH ×2 (08:56→16:44)
[2019-12-02] MEDS: DOCUSATE SODIUM 100 MG CAPSULE PO SCH ×2 (08:56→16:44)
[2019-12-02] MEDS: CHOLECALCIFEROL 1,000 UNIT TABLET PO SCH (08:57)
[2019-12-02] MEDS: OXYCODONE HCL 5 MG TABLET PO PRN ×2 (08:57→23:54)
[2019-12-02] MEDS: LIPO FLAVONOID PO SCH (09:39)
--- NOTE | 2019-12-02 10:10 | NUR ---
Received patient in room, patient AAO x 4, NO acute respiratory distress noted. Vitals stable. Right knee incision site with dressing in place, intact and dry. On continuous PT/OT therapy. Skin kept clean and dry. Safety measures in place, needs attended and will continue with care.
--- NOTE | 2019-12-02 15:44 | NUR ---
Patient took shower, surgical dressing changed. incision site with babs intact and dry.
[2019-12-02 15:57] VITALS: BP 107/55
[2019-12-02 20:00] VITALS: BP 120/60
--- NOTE | 2019-12-02 20:00 | NUR ---
Received patient in bed, Pt. is AAO x 4. No acute distress noted. VS stable. Right knee surgical site with dressing intact and dry. Ice applied for pain relief and swelling. Denies discomfort at the moment. Safety measures in place and will continue with care.
[2019-12-02] MEDS: MAGNESIUM HYDROXIDE 30 ML LIQUID UDC PO PRN (20:32)
--- NOTE | 2019-12-02 20:45 | NUR ---
All due medication administered, MS 30mg PO q 12hrs routine. Given PRN Milk of Mag as per pt request to relieve constipation. Patient is comfortable all needs attended to. Safety measure maintained.
[2019-12-02] MEDS: MAG HYDROX/AL HYDROX/SIMETH 30 ML LIQUID UDC PO PRN (23:54)
--- NOTE | 2019-12-03 | NUR ---
complaint of pain 08/26 administered PRN OXYIR 15mg PO administered Maalox suspension as per patient request
[2019-12-03 04:30] VITALS: BP 109/54
[2019-12-03] MEDS: MORPHINE SULFATE SR 30 MG TABLET.SA PO SCH ×3 (04:46→21:09)
[2019-12-03] MEDS ORDERED: MORPHINE SULFATE SR 15 MG TABLET.SA PO ONE (04:48)
--- NOTE | 2019-12-03 04:55 | NUR ---
scheduled morphine sulfate 30mg was not available. Package Worker could not get either. Administered 2 tablets morphine sulfate 15 mg with charge nurse and Package Worker approval/ witnessed.
[2019-12-03 08:00] VITALS: BP 110/52
[2019-12-03] MEDS: ASPIRIN EC 325 MG TABLET.DR PO SCH ×2 (08:27→17:58)
[2019-12-03] MEDS: GABAPENTIN 300 MG CAPSULE PO SCH ×3 (08:27→17:58)
[2019-12-03] MEDS: LIPO FLAVONOID PO SCH (08:27)
[2019-12-03] MEDS: FAMOTIDINE 20 MG TABLET PO SCH (08:28)
[2019-12-03] MEDS: SENNOSIDES 1 TABLET PO SCH ×2 (08:28→17:57)
[2019-12-03] MEDS: ACIDOPHILUS/BULGARICUS CHEW TAB PO SCH ×2 (08:28→21:09)
[2019-12-03] MEDS: DOCUSATE SODIUM 100 MG CAPSULE PO SCH ×2 (08:28→17:57)
[2019-12-03] MEDS: OXYCODONE HCL 5 MG TABLET PO PRN ×2 (08:34→22:01)
[2019-12-03] MEDS: CHOLECALCIFEROL 1,000 UNIT TABLET PO SCH (08:34)
--- NOTE | 2019-12-03 15:08 | NUR ---
Patient is AAO 4, No acute distress noted. Vital signs stable. NO new change of condition noted. Due medications administered as ordered and scheduled. Patient on PRN oxyir 15mg PO q 4hrsprn. Right knee with babs and dressing. Dressing knee dressing intact and dry. Patient on continuos PT/OT and tolerating well.
[2019-12-03 16:00] VITALS: BP 112/50
--- NOTE | 2019-12-03 18:15 | NUR ---
Needs attended, call light left at bed side, safety measures in place and will continue with care.
--- NOTE | 2019-12-03 19:30 | NUR ---
End of shift report given to pm nurse.
--- NOTE | 2019-12-03 20:12 | NUR ---
INTERDISCIPLINARY TEAM CONFERENCE
[2019-12-03 20:22] VITALS: BP 131/53
[2019-12-03] MEDS: MAG HYDROX/AL HYDROX/SIMETH 30 ML LIQUID UDC PO PRN (21:09)
[2019-12-03] MEDS: MAGNESIUM HYDROXIDE 30 ML LIQUID UDC PO PRN (21:09)
--- NOTE | 2019-12-03 22:00 | NUR ---
Received patient in bed, Pt. is AAO x 4. VWL, No acute distress noted. Right knee surgical site with dressing intact and dry. Ice applied for pain relief. Safety measures in place all personal items within reach and will continue with care.
--- NOTE | 2019-12-03 22:30 | NUR ---
complaint of pain 08/26 administered PRN OXYIR 15mg PO per patient request
[2019-12-04] MEDS: MORPHINE SULFATE SR 30 MG TABLET.SA PO SCH ×3 (04:07→20:34)
[2019-12-04 04:55] VITALS: BP 108/46
[2019-12-04] MEDS: OXYCODONE HCL 5 MG TABLET PO PRN ×4 (05:07→23:37)
[2019-12-04 08:00] VITALS: BP 102/48
[2019-12-04] MEDS: GABAPENTIN 300 MG CAPSULE PO SCH ×3 (09:18→17:48)
[2019-12-04] MEDS: SENNOSIDES 1 TABLET PO SCH ×2 (09:18→17:48)
[2019-12-04] MEDS: ACIDOPHILUS/BULGARICUS CHEW TAB PO SCH ×2 (09:18→20:34)
[2019-12-04] MEDS: FAMOTIDINE 20 MG TABLET PO SCH (09:18)
[2019-12-04] MEDS: DOCUSATE SODIUM 100 MG CAPSULE PO SCH ×2 (09:18→17:48)
[2019-12-04] MEDS: ASPIRIN EC 325 MG TABLET.DR PO SCH ×2 (09:18→17:48)
[2019-12-04] MEDS: LIPO FLAVONOID PO SCH (09:19)
[2019-12-04] MEDS: CHOLECALCIFEROL 1,000 UNIT TABLET PO SCH (09:19)
[2019-12-04 16:28] VITALS: BP 127/56
--- NOTE | 2019-12-04 18:59 | NUR ---
Patient remained stable through out the shift. Complained of pain on the right, given PRN pain medication as ordered with noted relief. Due medications administered and tolerated well. Assisted with her needs promptly and met. Patient participated and tolerated PT and OT. Call light and frequently used items placed within patient's reach. Safety measures maintained. Will endorse accordingly.
[2019-12-04 20:22] VITALS: BP 124/50
[2019-12-04] MEDS: MAG HYDROX/AL HYDROX/SIMETH 30 ML LIQUID UDC PO PRN (20:36)
--- NOTE | 2019-12-04 21:00 | NUR ---
Received patient in bed, Pt. is AAO x 4. VWL, No acute distress noted. C/o pain administered scheduled morphine 30 mg.Administered Mylanta as per pt request. Right knee surgical site with dressing intact and dry. Ice applied for pain relief. Safety measures in place all personal items within reach and will continue with care.
--- NOTE | 2019-12-04 23:50 | NUR ---
Pt complained of pain 8/10 administered Oxycodone 15mg PRN
[2019-12-05] MEDS: MORPHINE SULFATE SR 30 MG TABLET.SA PO SCH ×3 (04:18→19:58)
[2019-12-05 05:21] VITALS: BP 94/54
[2019-12-05] MEDS: OXYCODONE HCL 5 MG TABLET PO PRN ×2 (06:22→12:29)
[2019-12-05 08:00] VITALS: BP 105/49
[2019-12-05] MEDS: ASPIRIN EC 325 MG TABLET.DR PO SCH ×2 (08:10→17:42)
[2019-12-05] MEDS: ACIDOPHILUS/BULGARICUS CHEW TAB PO SCH ×2 (08:10→20:44)
[2019-12-05] MEDS: GABAPENTIN 300 MG CAPSULE PO SCH ×3 (08:11→17:36)
[2019-12-05] MEDS: LIPO FLAVONOID PO SCH (08:11)
[2019-12-05] MEDS: FAMOTIDINE 20 MG TABLET PO SCH (08:11)
[2019-12-05] MEDS: CHOLECALCIFEROL 1,000 UNIT TABLET PO SCH (08:11)
[2019-12-05] MEDS: DOCUSATE SODIUM 100 MG CAPSULE PO SCH ×2 (08:17→17:36)
[2019-12-05] MEDS: SENNOSIDES 1 TABLET PO SCH ×2 (08:18→17:36)
[2019-12-05 16:30] VITALS: BP 122/57
[2019-12-05 16:44] LABS: *BILIRUBIN,URIN NEGATIVE (NEGATIVE); *BLOOD, URINE NEGATIVE (NEGATIVE); *CLARITY,URINE CLEAR (CLEAR); *COLOR,URINE YELLOW (YELLOW); *KETONES,URINE NEGATIVE (NEGATIVE); *UROBILINOGEN,URINE 0.2 E.U./dl (NORMAL); LEUKOCYTE ESTERASE ,URINE NEGATIVE (NEGATIVE); NITRITE, URINE NEGATIVE (NEGATIVE); PH,URINE 6.5 (5.0-8.0); UGLUCOSE NEGATIVE (NEGATIVE)
--- NOTE | 2019-12-05 17:30 | NUR ---
Pt complained that she feels her butt and back and sore from being on the bed too much. Pt refused to have the nurse check and assess the area and refused to have picture taken. Gave mepilex and patient stated it helps
[2019-12-05] MEDS: MAG HYDROX/AL HYDROX/SIMETH 30 ML LIQUID UDC PO PRN (17:42)
--- NOTE | 2019-12-05 18:51 | NUR ---
Patient stable throughout shift, pain management provided for right knee pain as ordered, with relief. Participated with PT adn OT. Safety precaution in place. call light and belongings within reach. CPM placed on bed for easier access. Will endorse
[2019-12-05 20:14] VITALS: BP 124/54
--- NOTE | 2019-12-05 22:00 | NUR ---
Received patient in bed .AAox4 .C/o pain on rt knee.S/P right total knee arthroplasty with dressing intact clean and dry.Elevated Right knee with pillow.Due meds given.Continue safety measures.Call light and belongings within reach.will continue to monitor.
[2019-12-06] MEDS: OXYCODONE HCL 5 MG TABLET PO PRN ×2 (02:15→09:10)
[2019-12-06] MEDS: MORPHINE SULFATE SR 30 MG TABLET.SA PO SCH ×2 (04:17→12:10)
[2019-12-06 04:58] VITALS: BP 115/51
--- NOTE | 2019-12-06 06:07 | NUR ---
Patient slept intermittently d/t rt knee pain 08/26 .Medicated with PRN med given at 0215.Patient ambulates to the bathroom with the use of walker.Ice applied for pain relief.Compliant with care and medication.All needs anticipated and met accordingly.Call light and belongings with in reach.Will endorse to oncoming shift.
[2019-12-06 09:00] VITALS: BP 143/55
[2019-12-06] MEDS: FAMOTIDINE 20 MG TABLET PO SCH (09:07)
[2019-12-06] MEDS: DOCUSATE SODIUM 100 MG CAPSULE PO SCH (09:07)
[2019-12-06] MEDS: ASPIRIN EC 325 MG TABLET.DR PO SCH (09:07)
[2019-12-06] MEDS: GABAPENTIN 300 MG CAPSULE PO SCH ×2 (09:07→12:10)
[2019-12-06] MEDS: ACIDOPHILUS/BULGARICUS CHEW TAB PO SCH (09:07)
[2019-12-06] MEDS: LIPO FLAVONOID PO SCH (09:09)
[2019-12-06] MEDS: CHOLECALCIFEROL 1,000 UNIT TABLET PO SCH (09:09)
[2019-12-06] MEDS: SENNOSIDES 1 TABLET PO SCH (09:09)
[2019-12-06] MEDS: MAGNESIUM HYDROXIDE 30 ML LIQUID UDC PO PRN (09:10)
--- NOTE | 2019-12-06 12:00 | NUR ---
Called patient's [facility] pharmacy since patient wanted her pain medications called in to have it ready when she arrives. Gustavo from the pharmacy stated that it was fine to fax prescriptions and patient will just bring in her hard copy. Prescriptions faxed
--- NOTE | 2019-12-06 13:50 | NUR ---
Pt discharged via wheelchair AOx4, on RA denied SOB or distress at this time. DC instructions, forms, prescription hard copy and CD given to patient. Faxed prescription to [facility], patient aware. Wound dressing done on right knee, complained only of 3/10 pain upon movement. Belongings list signed and all accounted for. Patient made aware of home health plan. Patient picked up by radha.
== END 2019-12-06 13:50 | disposition home health service (06) | DRG 560 ==
PROVIDERS: ADMIT Physical Medicine & Rehabilitation Pain Medicine; ATTEND Physical Medicine & Rehabilitation Pain Medicine
DX: Z47.1 Aftercare following joint replacement surgery (principal); D68.59 Other primary thrombophilia; N39.0 Urinary tract infection, site not specified; E66.9 Obesity, unspecified; E89.0 Postprocedural hypothyroidism; F41.9 Anxiety disorder, unspecified; K21.9 Gastro-esophageal reflux disease without esophagitis; Z96.653 Presence of artificial knee joint, bilateral; K59.00 Constipation, unspecified; Z68.35 Body mass index [BMI] 35.0-35.9, adult; Z88.0 Allergy status to penicillin; M17.11 Unilateral primary osteoarthritis, right knee; G89.29 Other chronic pain
CPT/HCPCS: 36415; 83735; 84100; 84443; 85025; 87086; A4663; J1170